=== PATIENT | female | born 1965 | race Caucasian/White ===

== ENCOUNTER 2019-04-25 06:32 | Emergency (ER) | payer OTHER, SELFPAY ==
[2019-04-25 06:39] VITALS: BP 148/91; PULSE 86; RESP 12; TEMP 36.8; O2SAT 97; BMI 28.8
[2019-04-25] MEDS: PROCHLORPERAZINE 10 MG/2 ML VIAL IV (07:10)
[2019-04-25] MEDS: diphenhydrAMINE 50 MG/ML VIAL 25 MG IV (07:11)
[2019-04-25] MEDS: KETOROLAC 60 MG/2 ML VIAL 30 MG IV (07:11)
[2019-04-25] MEDS: SODIUM CHLORIDE 0.9% 1,000 ML 1000 ML IV (07:11)
--- NOTE | 2019-04-25 07:41 | ED.HA ---
HPI - Headache General Chief Complaint: Headache Stated Complaint: migrane since tuesday Time Seen by Provider: 04/25/19 07:01 Source: patient and family Mode of arrival: Ambulatory Limitations: no limitations History of Present Illness HPI Narrative: Patient comes emergency department complaining of a headache for the last 6 days. Patient has a history of migraine headaches and is seen by Dr. Helm of neurology at [facility]. She states that she also is seen at a chronic pain clinic because she has daily migraines. However, she is here because her normal therapies at home are not working and has been some days. Patient states that the headache is the same in character as her usual headaches otherwise. She states she has been somewhat nauseated but has not vomited. The headache is on the left side mainly, but has spread over the rest of her head. She states her neck feels tight but is not painful. She denies fevers or chills. No recent illness. No head injury. Patient denies any focal neurologic deficits, other than ?spots? in her vision, which she states is normal for her migraines. Patient denies any other complaints at this time. Related Data Home Medications Medication Instructions Recorded Confirmed methimazole [Tapazole] 10 mg PO Q DAY #0 07/04/11 [VICOPROFEN] #0 04/17/16 oxycodone [OxyContin] 10 mg OR HS #0 04/17/16 Previous Rx's Medication Instructions Recorded hydromorphone [Dilaudid] 4 mg PO Q6HP PRN #5 tab 04/17/16 promethazine 25 mg PO Q6HP PRN #10 tab 04/17/16 Allergies Allergy/AdvReac Type Severity Reaction Status Date / Time No Known Allergies Allergy Uncoded 08/17/17 12:12 Review of Systems Review of Systems ROS Unobtainable: All systems reviewed & are unremarkable except as noted in HPI and below Constitutional Constitutional: Denies chills, Denies fatigue, Denies fever(s), Denies frequent falls, Reports headache(s), Denies lethargy and Denies weakness Eyes Eyes: Denies change in vision, Denies eye discharge, Denies irritation and Denies loss of vision ENT Ears, Nose, Mouth, and Throat: Denies change in voice, Denies dizziness, Reports headache(s), Denies neck pain, Denies sore throat and Denies throat swelling Cardiovascular Cardiovascular: Denies chest pain, Denies irregular heart rhythm, Denies lightheadedness, Denies palpitations, Denies dyspnea, Denies dyspnea on exertion and Denies orthopnea Respiratory Respiratory: Denies cough, Denies dyspnea, Denies dyspnea on exertion and Denies wheezing Gastrointestinal Gastrointestinal: Denies abdominal pain, Denies change in bowel habits, Denies diarrhea, Denies nausea and Denies vomiting Genitourinary Genitourinary: Denies hematuria, Denies flank pain, Denies urinary incontinence and Denies urinary urgency Musculoskeletal Musculoskeletal: Denies back pain, Denies muscle weakness, Denies neck pain, Denies numbness and Denies tingling Integumentary/Breasts Skin/Breast: Denies pruritus, Denies erythema, Denies rash and Denies wounds Neurologic Neurologic: Denies behavioral changes, Denies confusion, Denies dizziness, Denies frequent falls, Reports headache(s), Denies loss of vision, Denies numbness, Denies tingling and Denies weakness Psychiatric Psychiatric: Denies anxiety, Denies behavioral changes, Denies confusion, Denies depression, Denies homicidal ideation and Denies suicidal ideation Endocrine Endocrine: Denies fatigue, Denies flushing and Denies palpitations Hematologic/Lymphatic Hematologic/Lymphatic: Denies easy bruising Allergic/Immunologic Allergic/Immunologic: Denies urticaria, Denies throat swelling and Denies wheezing Patient History Medical History Migraine (Acute) Social History Smoking Status: Never smoker Smoking Status: Never smoker alcohol intake frequency: a few times a week Substance Use Type: does not use Exam Initial Vital Signs Initial Vital Signs: Vital Signs Temperature 98.2 F 04/25/19 06:39 Pulse Rate 86 04/25/19 06:39 Respiratory Rate 12 04/25/19 06:39 Blood Pressure 148/91 H 04/25/19 06:39 Pulse Oximetry 97 04/25/19 06:39 Const General: cooperative and well developed Nutritional Appearance: well nourished Orientation: alert, awake, oriented x3 and not confused HENMT Head: normocephalic and atraumatic Ears: external ears normal Nose: external nose normal and No nasal discharge Face and sinus: face symmetric and No dry mucous membranes Mouth: oral mucosae normal and moist mucous membranes Teeth and gingiva: dentition normal Throat: uvula midline Eyes General: appearance normal, both eyes and all related structures Eyelids: eyelids normal Conjunctivae: conjunctivae normal Sclera: sclerae normal Pupils: PERRL EOM: EOM intact bilaterally Neck Neck: normal visual inspection, trachea midline, No lymphadenopathy, No midline deformity and No JVD Lymphatic: No lymphedema Chest Chest: normal inspection of the chest Resp Effort & Inspection: normal respiratory effort, able to speak in complete sentences, no respiratory distress and no use of accessory muscles Auscultation: clear to auscultation bilaterally, no rales, no rhonchi and no wheezes Cardio Rate: regular rate Rhythm: regular rhythm Heart Sounds: no click, no gallops, no murmurs and no rubs Pulses: normal peripheral pulses GI Inspection: non-distended Palpation: soft, no hepatosplenomegaly, No guarding, No pulsatile mass and No tender Auscultation: normal bowel sounds Back/Spine/Pelvis Back: No CVA tenderness Cervical Spine: cervical ROM normal and No pain with cervical ROM Thoracic/Lumbar Spine: thoracic and lumbar spine normal to inspection Skin General: no rashes or lesions noted, No jaundice and No petechiae Neuro General: alert, oriented x3, gait normal and no focal motor deficits Speech: speech normal Extrem General: full ROM, no clubbing, cyanosis or edema, no pedal edema and no calf tenderness Psych Appearance: well kempt Mental Status: mental status grossly normal Attitude: cooperative Thought Content: normal and suicidality Judgment: judgment good Course Course Course Narrative: When I evaluated the patient at the beginning of my shift in the emergency department, she had been here for 30 minutes and had received part of a L bolus 0.9 normal saline, as well as Compazine, Benadryl, and Toradol. She stated that her nausea was a little bit better, but her headache persisted. She stated that she has had migraines for a long time and that she is not a drug seeker and does not want to be viewed as such. 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 However, as she states is that what generally works for her is a small dose of Dilaudid and some Zofran. She is already on narcotics at home in the form of Vicoprofen and oxycodone. She states her last ED visit was about 4 5 months ago, but that normally, she calls her pain doctor and gets a prescription for several tablets of hydromorphone, and is able to overcome the headache at home. Patient was given the rest of the IV fluids, as well as 1 mg of Dilaudid and 4 mg dose Zofran. The patient was found to be feeling better after this, was deemed stable for discharge home. We've discussed home management of symptoms, the need for follow-up, and the usual indications for return. Orders Ordered: Discontinued Medications Diphenhydramine HCl (Benadryl) 25 mg IV NOW ONE Stop: 04/25/19 07:02 Last Admin: 04/25/19 07:11 Dose: 25 mg Documented by: ARACELI Hydromorphone HCl (Dilaudid) 1 mg IV NOW ONE Stop: 04/25/19 07:41 Last Admin: 04/25/19 07:50 Dose: 1 mg Documented by: DEYSI Sodium Chloride (Normal Saline 0.9%) 1,000 mls @ 1,000 mls/hr IV BOLUS ONE Stop: 04/25/19 08:00 Last Infusion: 04/25/19 08:01 Dose: 0 mls/hr Documented by: Admin: 04/25/19 07:11 Dose: 1,000 mls/hr Documented by: ARACELI Ketorolac Tromethamine (Toradol) 30 mg IV NOW ONE Stop: 04/25/19 07:02 Last Admin: 04/25/19 07:11 Dose: 30 mg Documented by: ARACELI Ondansetron HCl (Zofran) 4 mg IV NOW ONE Stop: 04/25/19 07:41 Last Admin: 04/25/19 07:50 Dose: 4 mg Documented by: DEYSI Prochlorperazine (Compazine) 10 mg IV NOW ONE Stop: 04/25/19 07:02 Last Admin: 04/25/19 07:10 Dose: 10 mg Documented by: ARACELI Vital Signs Vital signs: Vital Signs - 8 hr 04/25/19 06:39 04/25/19 07:55 04/25/19 08:00 Temperature 98.2 F Pulse Rate 86 76 63 Respiratory Rate 12 15 16 Blood Pressure 148/91 H Blood Pressure [Left Arm] 154/89 H 143/89 H Pulse Oximetry 97 98 95 MDM - Headache Medical Records Attestation: I reviewed the patient's medical records. Discharge Plan Departure Patient Disposition: Home Clinical Impression: Migraine Qualifiers: Migraine type: without aura Status migrainosus presence: without status migrainosus Intractability: not intractable Qualified Code(s): G43.009 - Migraine without aura, not intractable, without status migrainosus Instructions: DI for Migraine Prescriptions: No Action methimazole [Tapazole] 10 MG tablet 10 mg PO Q DAY Qty: 0 RF: 0 oxycodone [OxyContin] 40 MG tablet,oral only,ext.rel.12 hr 10 mg OR HS Qty: 0 RF: 0 [VICOPROFEN] Qty: 0 RF: 0 promethazine 25 MG tablet 25 mg PO Q6HP PRNQty: 10 RF: 0 hydromorphone [Dilaudid] 4 MG tablet 4 mg PO Q6HP PRNQty: 5 RF: 0 Referrals: Pura Tse PA-C [Primary Care Provider] - Stand Alone Forms: Work Release Note
[2019-04-25] MEDS: HYDROMORPHONE 1 MG INJ IV (07:50)
[2019-04-25] MEDS: ONDANSETRON 4 MG/2 ML INJ IV (07:50)
[2019-04-25 07:55] VITALS: BP 154/89; PULSE 76; RESP 15; O2SAT 98
[2019-04-25 08:00] VITALS: BP 143/89; PULSE 63; RESP 16; O2SAT 95
== END 2019-04-25 08:44 | disposition home or self-care (01) ==
PROVIDERS: Emergency Provider Emergency Medicine; PCP Physician Assistant Medical
DX: G43.009 Migraine without aura, not intractable, without status migrainosus (principal)
CPT/HCPCS: 36415; 96361; 96374; 96375; 99284; J0780; J1170; J1200; J1885; J2405

== ENCOUNTER 2019-07-20 05:09 | Emergency (ER) | payer OTHER, SELFPAY ==
[2019-07-20 05:13] VITALS: BP 190/95; RESP 20; O2SAT 98
--- NOTE | 2019-07-20 05:13 | ED.GENADULT ---
HPI - General Adult General Chief complaint: Dizziness Stated complaint: rolled over in bed and got dizzy/eye problem Time Seen by Provider: 07/20/19 05:13 History of Present Illness HPI narrative: 53-year-old woman with a history of chronic migraine causing chronic pain, prior episode of global transient amnesia presents with acute onset vertigo. Was asleep rolled over in bed had severe vertigo that has calmed by the time she gets to the emergency room but is clearly very positional. She describes her most recent migraine as 1 week ago, she has had no new medications, no fevers, chills or viral type syndromes. No head trauma, no visual changes mild nausea no vomiting no diarrhea no abdominal pain, dyspnea or chest pain. Related Data Home Medications Medication Instructions Recorded Confirmed methimazole [Tapazole] 10 mg PO Q DAY #0 07/04/11 [VICOPROFEN] #0 04/17/16 oxycodone [OxyContin] 10 mg OR HS #0 04/17/16 Previous Rx's Medication Instructions Recorded hydromorphone [Dilaudid] 4 mg PO Q6HP PRN #5 tab 04/17/16 promethazine 25 mg PO Q6HP PRN #10 tab 04/17/16 ondansetron 4 mg PO Q8H PRN #30 tab 07/20/19 Allergies Allergy/AdvReac Type Severity Reaction Status Date / Time No Known Allergies Allergy Uncoded 08/17/17 12:12 Review of Systems Review of Systems Narrative: All systems reviewed and are unremarkable except as noted in HPI and below Patient History Medical History (Updated 07/20/19 @ 05:32 by Anai Bojorquez MD) Migraine (Acute) Transient amnesia (Acute) Social History Smoking Status: Never smoker Smoking Status: Never smoker alcohol intake frequency: a few times a week Substance Use Type: does not use Exam Narrative Exam Narrative: General: Healthy appearing, in no acute distress. Able to give a complete and coherent history. Well-nourished well-developed HEENT: Moist mucous membranes, normal sclera with reactive pupils, with positional changes there is very mild rotatory nystagmus when she is going from laying supine to sitting up. She has mild rotatory nystagmus with positioning her head rapidly to the left side it extinguishes quickly. Very minimal nystagmus with right-sided rapid head positioning. Neck: No JVD, supple Respiratory: Lungs are clear to auscultation, no wheezing no rales no rhonchi. Full and symmetrical air movement Cardiac: Regular rate and rhythm no murmurs no bruits Abdomen: Soft nontender good bowel tones, no flank pain Skin: Warm and dry, no rashes Neurologic: Grossly neurologically intact with no obvious asymmetries or abnormalities Extremities: No trauma, well perfused Psych: Cooperative, appropriate insight and affect Initial Vital Signs Initial Vital Signs: Vital Signs Respiratory Rate 20 07/20/19 05:13 Blood Pressure 190/95 H 07/20/19 05:13 Pulse Oximetry 98 07/20/19 05:13 Course Orders Ordered: Discontinued Medications Meclizine HCl (Antivert) 25 mg PO NOW ONE Stop: 07/20/19 05:25 Last Admin: 07/20/19 05:47 Dose: 25 mg Documented by: [email or web address] Ondansetron HCl (Zofran Odt) 4 mg SL NOW ONE Stop: 07/20/19 05:25 Last Admin: 07/20/19 05:39 Dose: 4 mg Documented by: [email or web address] Vital Signs Vital signs: Vital Signs - 8 hr 07/20/19 05:13 Respiratory Rate 20 Blood Pressure 190/95 H Pulse Oximetry 98 Medical Decision Making Medical Records Medical records reviewed: Yes I reviewed the patient's medical records. MDM Narrative Medical decision making narrative: Exam and presentation are most consistent with acute onset of benign positional vertigo. She had an MRI MRA of her brain a month ago at [facility] as part of migraine workup. I was reportedly normal meaning that the chances of a developing a tumor or neoplastic syndrome within the last month is highly unlikely. Given her other lack of neurologic finding stroke is unlikely. No evidence of infection or meningitis. Will see if meclizine and Zofran or effective in controlling her nausea. Anticipatory guidance will be given and she is safe for home discharge Discharge Plan Departure Patient Disposition: Home Clinical Impression: Benign paroxysmal positional vertigo Qualifiers: Laterality: left Qualified Code(s): H81.12 - Benign paroxysmal vertigo, left ear Instructions: DI for Benign Paroxysmal Positional Vertigo Activity Restrictions/Additional Instructions: Thank you for coming in today Based on your history and your exam as well as the fact that you had a fairly recent MRI of your brain, the most likely diagnosis to explain her symptoms today is benign positional vertigo. I am going to suggest that you consider using meclizine/Antivert, this is actually cheaper [id number] than it is by prescription. It is 25 mg as needed every 6 hours for vertigo or nausea. If this is effective it is safe to use for extended periods of time. Sometimes Zofran can be equally effective. In the emergency room you are given both and if that seem to work you can combined the 2 medications as I do work by different mechanisms. Please follow-up with your primary care physician for continued to have symptoms, sometimes there are some maneuvers that can be done with physical therapy that can try to reset your inner ear Prescriptions: New ondansetron 4 mg tablet,disintegrating 4 mg PO Q8H PRN (Reason: nausea and vomiting) Qty: 30 RF: 0 No Action methimazole [Tapazole] 10 MG tablet 10 mg PO Q DAY Qty: 0 RF: 0 oxycodone [OxyContin] 40 MG tablet,oral only,ext.rel.12 hr 10 mg OR HS Qty: 0 RF: 0 [VICOPROFEN] Qty: 0 RF: 0 promethazine 25 MG tablet 25 mg PO Q6HP PRNQty: 10 RF: 0 hydromorphone [Dilaudid] 4 MG tablet 4 mg PO Q6HP PRNQty: 5 RF: 0 Referrals: Pura Tse PA-C [Primary Care Provider] -
[2019-07-20 05:24] VITALS: BMI 26.5
[2019-07-20] MEDS: ONDANSETRON 4 MG ODT SL (05:39)
[2019-07-20] MEDS: MECLIZINE HCL 12.5 MG TABLET 25 MG PO (05:47)
[2019-07-20 05:50] VITALS: BP 162/70; PULSE 77; RESP 16; O2SAT 100
== END 2019-07-20 05:55 | disposition home or self-care (01) ==
PROVIDERS: Emergency Provider Emergency Medicine; PCP Physician Assistant Medical
DX: H81.12 Benign paroxysmal vertigo, left ear (principal); G45.4 Transient global amnesia; G43.909 Migraine, unspecified, not intractable, without status migrainosus
CPT/HCPCS: 99283

== ENCOUNTER 2020-07-22 14:39 | Emergency (ER) | payer OTHER, SELFPAY ==
[2020-07-22] VITALS (17 sets, daily range): BP systolic 116–157; BP diastolic 57–89; PULSE 73–104; RESP 14–40; TEMP 36.9; O2SAT 92–99
--- NOTE | 2020-07-22 14:48 | DI.RAD.S_ITS ---
PROCEDURE: XR CHEST 1V INDICATIONS: chest pain TECHNIQUE: One view of the chest was acquired. COMPARISON: [facility], CR, XR SHOULDER 2+ VIEWS LEFT, 11/07/2017, 14:58. Outside Film, CT, CT ABDOMEN PELVIS WITH CONTRAST, 11/15/2015, 7:07. FINDINGS: Surgical changes and devices: None. Lungs and pleura: Lungs appear clear. No pleural effusions or pneumothorax. Mediastinum: Mediastinal contours appear normal. Heart size is normal. Bones and chest wall: No suspicious bony lesions. Overlying soft tissues appear unremarkable. IMPRESSION: No acute cardiopulmonary abnormality. Dictated by: Drew Gallagher M.D. on 07/22/2020 at 14:26 Approved by: Drew Gallagher M.D. on 07/22/2020 at 14:28
[2020-07-22 15:14] LABS: Add Manual Diff / Slide Review NO; Basophils Absolute Auto 0 /uL (0-100); Basophils Percent Auto 0.9 % (0-2); Eosinophils Absolute Auto 100 /uL (0-450); Eosinophils Percent Auto 2.7 % (2-4); Hematocrit 37.3 % (36-46); Hemoglobin 12.4 g/dL (12.0-16.0); Lymphocytes Absolute Auto 1000 /uL (1100-4500); Lymphocytes Percent Auto 24.5 % (25-40); Mean Corpuscular HGB Conc 33.2 % (30-36); Mean Corpuscular Hemoglobin 28.9 PG (26-34); Mean Corpuscular Volume 87.2 fL (80-100); Monocytes Absolute Auto 400 /uL (0-900); Monocytes Percent Auto 8.7 % (3-14); Neutrophils Absolute Auto 2700 /uL (1500-7000); Neutrophils Percent Auto 63.2 % (50-75); Platelet Count 323 X10^3/uL (150-400); Red Blood Cell Count 4.28 X10^6/uL (4.0-5.2); Red Cell Distribution Width 14.4 % (11.6-14.8); White Blood Cell Count 4.2 X10^3/uL (4.5-11.0)
[2020-07-22 15:17] LABS: INR 0.9 (0.9-1.3); Prothrombin Time 10.2 SECONDS (10.1-12.7)
[2020-07-22 15:20] LABS: PTT Partial Thromboplastin Tim 28 SECONDS (26.4-36.2)
[2020-07-22 15:22] LABS: Alanine Aminotransferase 47 IU/L (<35); Albumin 4.5 g/dL (3.5-5.0); Albumin Globulin Ratio 1.4 (1.0-2.8); Alkaline Phosphatase 112 U/L (38-126); Aspartate Aminotransferase 36 IU/L (14-36); BUN Creatinine Ratio 20.5 (6-22); Bilirubin Total 0.4 mg/dL (0.2-1.3); Blood Urea Nitrogen 16 mg/dL (7-17); Calcium 9.3 mg/dL (8.4-10.2); Carbon Dioxide 28 mmol/L (22-32); Chloride 102 mmol/L (98-107); Creatine Kinase 37 U/L (30-135); Estimated Glomerular Filt Rate > 60.0 mL/min (>60); Globulin 3.2 g/dL (1.7-4.1); Glucose 110 mg/dL (70-100); HEMOLYSIS < 15 (0-50); Lipase 89 U/L (23-300); Potassium 4.4 mmol/L (3.4-5.1); Sodium 134 mmol/L (137-145); Total Protein 7.7 g/dL (6.3-8.2)
[2020-07-22 15:29] LABS: COVID19 -Nasal RAPID Negative (Negative)
[2020-07-22 15:31] LABS: D Dimer < 200 ng/mL (<230)
[2020-07-22 15:33] LABS: Troponin I < 0.012 ng/mL (0.01-0.034)
[2020-07-22 15:53] LABS: NT-proBNP (BNP-Adult 18+) 210 pg/mL (<125)
--- NOTE | 2020-07-22 18:18 | ED.CHESTPAIN ---
HPI - Chest Pain General Chief Complaint: Chest Pain Stated Complaint: Chest pain 3-4 days Time Seen by Provider: 07/22/20 18:02 Source: patient and EMS Mode of arrival: EMS Limitations: no limitations History of Present Illness HPI narrative: 54-year-old female former smoker with history of hypertension presents by EMS for evaluation of increasing episodes and intensity of chest pain and pressure. She states that over the past 2 weeks or so she has had increasing fatigue and shortness of breath with exertion. She has had episodes of chest pressure with exertion that seemed to resolve on their own. Over the course of the day she developed more intense left-sided chest pressure with radiation to left shoulder, right shoulder and jaw. She called EMS and was transported here. Her symptoms completely resolved with 1 nitro EN route. She denies any dizziness, lightheadedness or pain on arrival. She has had no nausea or vomiting. He denies any cardiac history. She denies exposure to COVID. She has had no recent travel, history of clot or recent injury. MD complaint: chest pain Onset (ago): week(s) Duration: intermittent and progressively worsening Onset: during rest and during exertion Pain location: substernal and left chest Severity: moderate Severity scale (1-10): 4 Quality: tightness and aching Pain radiation: RUE, LUE, neck and jaw/teeth Relieving factors: nitroglycerin Exacerbating factors: exertion Associated symptoms: dyspnea Treatments prior to arrival chest pain: nitroglycerin Related Data On Oral Contraceptives: No Home Medications Medication Instructions Recorded Confirmed methimazole [Tapazole] 10 mg PO Q DAY #0 07/04/11 [VICOPROFEN] #0 04/17/16 oxycodone [OxyContin] 10 mg OR HS #0 04/17/16 Previous Rx's Medication Instructions Recorded hydromorphone [Dilaudid] 4 mg PO Q6HP PRN #5 tab 04/17/16 promethazine 25 mg PO Q6HP PRN #10 tab 04/17/16 ondansetron 4 mg PO Q8H PRN #30 tab 07/20/19 Allergies Allergy/AdvReac Type Severity Reaction Status Date / Time No Known Allergies Allergy Uncoded 08/17/17 12:12 Review of Systems Constitutional Constitutional: Denies chills, Denies fatigue, Denies fever(s), Denies frequent falls, Denies lethargy and Denies weakness Eyes Eyes: Denies change in vision, Denies eye discharge, Denies irritation and Denies loss of vision ENT Ears, Nose, Mouth, and Throat: Denies change in voice, Denies dizziness, Denies neck pain, Denies sore throat and Denies throat swelling Cardiovascular Cardiovascular: Reports chest pain, Reports chest pain at rest, Reports chest pain with activity, Denies irregular heart rhythm, Denies lightheadedness, Denies palpitations, Denies dyspnea, Denies dyspnea on exertion and Denies orthopnea Respiratory Respiratory: Denies cough, Denies dyspnea, Denies dyspnea on exertion and Denies wheezing Gastrointestinal Gastrointestinal: Denies abdominal pain, Denies change in bowel habits, Denies diarrhea, Denies nausea and Denies vomiting Musculoskeletal Musculoskeletal: Denies neck pain and Denies numbness Integumentary/Breasts Skin/Breast: Denies pruritus, Denies erythema, Denies rash and Denies wounds Neurologic Neurologic: Denies behavioral changes, Denies confusion, Denies dizziness, Denies frequent falls, Denies loss of vision, Denies numbness and Denies weakness Psychiatric Psychiatric: Denies anxiety, Denies behavioral changes, Denies confusion, Denies depression, Denies homicidal ideation and Denies suicidal ideation Endocrine Endocrine: Denies fatigue, Denies flushing and Denies palpitations Hematologic/Lymphatic Hematologic/Lymphatic: Denies easy bruising Allergic/Immunologic Allergic/Immunologic: Denies urticaria, Denies throat swelling and Denies wheezing Patient History Medical History Migraine Transient amnesia Social History Smoking Status: Never smoker Smoking Status: Never smoker alcohol intake frequency: a few times a week Substance Use Type: does not use Exam Narrative Exam Narrative: GENERAL: [54] year old patient appears stated age. Well-nourished, well-developed patient, in mild distress. HEAD: Atraumatic. Normocephalic. EYES: Pupils equal round and reactive. Extraocular motions intact. No scleral icterus. No injection or drainage. ENT: Nose without bleeding, purulent drainage. Throat without erythema, tonsillar hypertrophy or exudate. Airway patent. NECK: Trachea midline. Non tender CARDIOVASCULAR: Regular rate and rhythm without murmurs, gallops, or rubs. RESPIRATORY: Clear to auscultation. Breath sounds equal bilaterally. No wheezes, rales, or rhonchi. GASTROINTESTINAL: Abdomen soft, non-tender, nondistended. EXTREMITIES: No edema or joint tenderness. BACK: Nontender without deformity or crepitance. No flank tenderness. NEURO: AOx3. SKIN: No rash or erythema of visible areas Initial Vital Signs Initial Vital Signs: Vital Signs Pulse Rate 104 H 07/22/20 15:01 Respiratory Rate 40 H 07/22/20 15:01 Course Orders Ordered: ED Orders 07/22/20 14:48 XR chest 1V Stat EKG-12 Lead Stat 07/22/20 15:05 Complete Blood Count AUTO DIFF Stat Comprehensive Metabolic Panel Stat D Dimer Stat Lipase Stat NT-proBNP (BNP-Adult 18+) Stat Partial Thromboplastin Time Stat Prothrombin Time INR Stat Troponin & CK Cardiac Panel Stat 07/22/20 15:06 COVID19 -Nasal swab/Pre-Proc Stat 07/22/20 18:20 EKG-12 Lead Stat 07/22/20 19:07 Troponin I Stat 07/22/20 21:07 EKG-12 Lead Stat Heparin Sodium/Dextrose (Heparin Drip) 25,000 unit in 500 mls @ 20 mls/hr IV CONT EMMANUEL; Protocol Last Admin: 07/22/20 19:42 Dose: 1,000 units/hr, 20 mls/hr Documented by: GERMÁN Discontinued Medications Hydrocodone Bitart/Acetaminophen (Hydrocodone/Acet 5/325 Tablet) 2 tab PO NOW ONE Stop: 07/22/20 19:56 Last Admin: 07/22/20 20:01 Dose: 2 tab Documented by: GERMÁN Aspirin (Aspirin 81 Mg Chew Tab) 324 mg PO NOW ONE Stop: 07/22/20 18:21 Last Admin: 07/22/20 18:53 Dose: 324 mg Documented by: RADHA Heparin Sodium (Porcine) (Heparin 5,000 Unit/Ml Vial) 4,000 unit IV NOW ONE Stop: 07/22/20 19:34 Last Admin: 07/22/20 19:42 Dose: 4,000 unit Documented by: GERMÁN Nitroglycerin (Nitroglycerin 0.4 Mg Sl Tab) 0.4 mg SL [id number] PRN PRN Reason: Chest Pain Last Admin: 07/22/20 19:12 Dose: 0.4 mg Documented by: Admin: 07/22/20 19:11 Dose: 0.4 mg Documented by: Admin: 07/22/20 19:00 Dose: 0.4 mg Documented by: RADHA Nitroglycerin (Nitroglycerin Oint 1 Inch/Gm Oint...G.) 0.5 inch TOP NOW ONE Stop: 07/22/20 21:08 Reevaluation(s) Reevaluation #1: Patient starting to develop chest pressure again, given nitro with complete relief Time: 19:40 Reevaluation #2: Patient was ambulated to the bathroom which brought her pressure back onto a 3/10. She is given nitro paste and a repeat EKG Time: 21:13 Consultations Consultation #1: Discussed case with Cardiology (Maye), he agrees that this is likely an evolving process and will require transfer for higher level care unlikely heart catheterization. Patient already takes metoprolol and has been given aspirin, nitro and heparin bolus and drip Vital Signs Vital signs: Vital Signs - 8 hr 07/22/20 15:01 07/22/20 15:30 07/22/20 17:00 Temperature 98.4 F Pulse Rate 104 H 75 76 Respiratory Rate 40 H 21 16 Blood Pressure 140/86 141/89 H Pulse Oximetry 97 98 07/22/20 18:00 07/22/20 19:00 07/22/20 19:11 Temperature Pulse Rate 76 83 97 H Respiratory Rate 16 Blood Pressure 130/78 155/89 H 135/88 Pulse Oximetry 99 07/22/20 19:12 Temperature Pulse Rate 90 Respiratory Rate Blood Pressure 118/57 L Pulse Oximetry MDM - Chest Pain Lab Data Result diagrams: 07/22/20 15:05 07/22/20 15:05 Labs: Lab Results 07/22/20 07/22/20 07/22/20 Range/Units 15:05 15:05 15:05 WBC 4.2 L (4.5-11.0) X10^3/uL RBC 4.28 (4.0-5.2) X10^6/uL Hgb 12.4 (12.0-16.0) g/dL Hct 37.3 (36-46) % MCV 87.2 (80-100) fL MCH 28.9 (26-34) PG MCHC 33.2 (30-36) % RDW 14.4 (11.6-14.8) % Plt Count 323 (150-400) X10^3/uL Neut % (Auto) 63.2 (50-75) % Lymph % (Auto) 24.5 L (25-40) % [place] % (Auto) 8.7 (3-14) % Eos % (Auto) 2.7 (2-4) % Baso % (Auto) 0.9 (0-2) % Neut # (Auto) 2700 (7203-0121) /uL Lymph # (Auto) 1000 L (4319-2689) /uL [place] # (Auto) 400 (0-900) /uL Eos # (Auto) 100 (0-450) /uL Baso # (Auto) 0 (0-100) /uL PT 10.2 (10.1-12.7) SECONDS INR 0.9 (0.9-1.3) APTT 28 (26.4-36.2) SECONDS D-Dimer (<230) ng/mL Sodium 134 L (137-145) mmol/L Potassium 4.4 (3.4-5.1) mmol/L Chloride 102 (98-107) mmol/L Carbon Dioxide 28 (22-32) mmol/L BUN 16 (7-17) mg/dL Creatinine 0.78 (0.52-1.04) mg/dL Estimated GFR > 60.0 (>60) mL/min BUN/Creatinine Ratio 20.5 (6-22) Glucose 110 H (70-100) mg/dL Calcium 9.3 (8.4-10.2) mg/dL Total Bilirubin 0.4 (0.2-1.3) mg/dL AST 36 (14-36) IU/L ALT 47 H (<35) IU/L Alkaline Phosphatase 112 (38-126) U/L Total Creatine Kinase 37 (30-135) U/L CK-MB (CK-2) TNP CK-MB (CK-2) Rel Index TNP Troponin I < 0.012 (0.01-0.034) ng/mL NT-Pro-B Natriuret Pep (<125) pg/mL Total Protein 7.7 (6.3-8.2) g/dL Albumin 4.5 (3.5-5.0) g/dL Globulin 3.2 (1.7-4.1) g/dL Albumin/Globulin Ratio 1.4 (1.0-2.8) Lipase 89 (23-300) U/L SARS-CoV-2 (PCR) (Negative) 07/22/20 07/22/20 07/22/20 Range/Units 15:05 15:05 15:06 WBC (4.5-11.0) X10^3/uL RBC (4.0-5.2) X10^6/uL Hgb (12.0-16.0) g/dL Hct (36-46) % MCV (80-100) fL MCH (26-34) PG MCHC (30-36) % RDW (11.6-14.8) % Plt Count (150-400) X10^3/uL Neut % (Auto) (50-75) % Lymph % (Auto) (25-40) % [place] % (Auto) (3-14) % Eos % (Auto) (2-4) % Baso % (Auto) (0-2) % Neut # (Auto) (4694-7986) /uL Lymph # (Auto) (2020-4777) /uL [place] # (Auto) (0-900) /uL Eos # (Auto) (0-450) /uL Baso # (Auto) (0-100) /uL PT (10.1-12.7) SECONDS INR (0.9-1.3) APTT (26.4-36.2) SECONDS D-Dimer < 200 (<230) ng/mL Sodium (137-145) mmol/L Potassium (3.4-5.1) mmol/L Chloride (98-107) mmol/L Carbon Dioxide (22-32) mmol/L BUN (7-17) mg/dL Creatinine (0.52-1.04) mg/dL Estimated GFR (>60) mL/min BUN/Creatinine Ratio (6-22) Glucose (70-100) mg/dL Calcium (8.4-10.2) mg/dL Total Bilirubin (0.2-1.3) mg/dL AST (14-36) IU/L ALT (<35) IU/L Alkaline Phosphatase (38-126) U/L Total Creatine Kinase (30-135) U/L CK-MB (CK-2) CK-MB (CK-2) Rel Index Troponin I (0.01-0.034) ng/mL NT-Pro-B Natriuret Pep 210 H (<125) pg/mL Total Protein (6.3-8.2) g/dL Albumin (3.5-5.0) g/dL Globulin (1.7-4.1) g/dL Albumin/Globulin Ratio (1.0-2.8) Lipase (23-300) U/L SARS-CoV-2 (PCR) Negative (Negative) 07/22/20 Range/Units 19:07 WBC (4.5-11.0) X10^3/uL RBC (4.0-5.2) X10^6/uL Hgb (12.0-16.0) g/dL Hct (36-46) % MCV (80-100) fL MCH (26-34) PG MCHC (30-36) % RDW (11.6-14.8) % Plt Count (150-400) X10^3/uL Neut % (Auto) (50-75) % Lymph % (Auto) (25-40) % [place] % (Auto) (3-14) % Eos % (Auto) (2-4) % Baso % (Auto) (0-2) % Neut # (Auto) (5021-7243) /uL Lymph # (Auto) (6629-3578) /uL [place] # (Auto) (0-900) /uL Eos # (Auto) (0-450) /uL Baso # (Auto) (0-100) /uL PT (10.1-12.7) SECONDS INR (0.9-1.3) APTT (26.4-36.2) SECONDS D-Dimer (<230) ng/mL Sodium (137-145) mmol/L Potassium (3.4-5.1) mmol/L Chloride (98-107) mmol/L Carbon Dioxide (22-32) mmol/L BUN (7-17) mg/dL Creatinine (0.52-1.04) mg/dL Estimated GFR (>60) mL/min BUN/Creatinine Ratio (6-22) Glucose (70-100) mg/dL Calcium (8.4-10.2) mg/dL Total Bilirubin (0.2-1.3) mg/dL AST (14-36) IU/L ALT (<35) IU/L Alkaline Phosphatase (38-126) U/L Total Creatine Kinase (30-135) U/L CK-MB (CK-2) CK-MB (CK-2) Rel Index Troponin I < 0.012 (0.01-0.034) ng/mL NT-Pro-B Natriuret Pep (<125) pg/mL Total Protein (6.3-8.2) g/dL Albumin (3.5-5.0) g/dL Globulin (1.7-4.1) g/dL Albumin/Globulin Ratio (1.0-2.8) Lipase (23-300) U/L SARS-CoV-2 (PCR) (Negative) Imaging Data Chest x-ray: Radiologist's Impression: Ginny Garcia 54 F [address] [id number] ReportSigned Patient: Ginny Garcia MMR#: [id number]: 1965Acct:[id number]/Sex: 54 / FDate of Service: 07/22/20Loc: EDAccession Number: [id number] Procedure: XR chest 1V Ordering Provider: Karen Coates D.O. PROCEDURE: XR CHEST 1V INDICATIONS: chest pain TECHNIQUE: One view of the chest was acquired. COMPARISON: [facility], CR, XR SHOULDER 2+ VIEWS LEFT, 11/07/2017, 14:58. Outside Film, CT, CT ABDOMEN PELVIS WITH CONTRAST, 11/15/2015, 7:07. FINDINGS: Surgical changes and devices: None. Lungs and pleura: Lungs appear clear. No pleural effusions or pneumothorax. Mediastinum: Mediastinal contours appear normal. Heart size is normal. Bones and chest wall: No suspicious bony lesions. Overlying soft tissues appear unremarkable. IMPRESSION: No acute cardiopulmonary abnormality. Dictated by: Drew Gallagher M.D. on 07/22/2020 at 14:26 Approved by: Drew Gallagher M.D. on 07/22/2020 at 14:28 ECG Data Attestation: I personally reviewed and interpreted this ECG as follows: Interpretation: EKG 1: NSR, rate 74. No ST elevations or depressions. The are T-wave inversions in 3 and V1 with flattening in V4 and V5. No ectopy. PA interval, 148. QRS 78. QTC 402 EKG 2: NSR. Rate 73. No ST elevations or depressions. Larger T wave inversions after walking in III, V1 Critical Care Time Critical Care Time Critical Care Time: Yes Total Critical Care Time: 30 Attestation: The high probability of a clinically significant, sudden or life threatening deterioration of the [CV] system(s) required my full and direct attention, intervention and personal management. The aggregate critical care time was [30] minutes. This time is in addition to time spent performing reported procedures but includes the following: [x] Data Review and interpretation [x] Patient assessment and monitoring of vital signs [x] Documentation [x] Medication orders and management Discharge Plan Departure Patient Disposition: [facility] Clinical Impression: Angina pectoris, unstable Prescriptions: No Action methimazole [Tapazole] 10 MG tablet 10 mg PO Q DAY Qty: 0 RF: 0 oxycodone [OxyContin] 40 MG tablet,oral only,ext.rel.12 hr 10 mg OR HS Qty: 0 RF: 0 [VICOPROFEN] Qty: 0 RF: 0 promethazine 25 MG tablet 25 mg PO Q6HP PRNQty: 10 RF: 0 hydromorphone [Dilaudid] 4 MG tablet 4 mg PO Q6HP PRNQty: 5 RF: 0 ondansetron 4 mg tablet,disintegrating 4 mg PO Q8H PRN (Reason: nausea and vomiting) Qty: 30 RF: 0 Referrals: Pura Tse PA-C [Primary Care Provider] -
[2020-07-22] MEDS: ASPIRIN 81 MG CHEW TAB 324 MG PO (18:53)
[2020-07-22] MEDS: NITROGLYCERIN 0.4 MG SL TAB SL ×3 (19:00→19:12)
[2020-07-22 19:40] LABS: Troponin I < 0.012 ng/mL (0.01-0.034)
[2020-07-22] MEDS: HEPARIN 5,000 UNIT/ML VIAL 4000 UNIT IV (19:42)
[2020-07-22] MEDS: HEPARIN DRIP 25,000 UNIT/500 ML IV.SOLN 20 UNIT IV (19:42)
[2020-07-22] MEDS: HYDROCODONE/ACET 5/325 TABLET 2 TAB PO (20:01)
[2020-07-22] MEDS: NITROGLYCERIN OINT 1 INCH/GM OINT...G. 0.5 INCH TOP (21:11)
== END 2020-07-22 21:35 | disposition short-term general hospital (02) ==
PROVIDERS: Emergency Medicine; Emergency Provider Emergency Medicine; PCP Physician Assistant Medical
DX: I20.0 Unstable angina (principal); R06.02 Shortness of breath; Z20.822 Contact with and (suspected) exposure to COVID-19
CPT/HCPCS: 36415; 71045; 80053; 82550; 83690; 83880; 84484; 85025; 85379; 85610; 85730; 87635; 93005; 93010; 96365; 96366; 96375; 99284; 99291; C9803; J1644

== ENCOUNTER 2020-09-25 02:44 | Observation (INO) | payer OTHER, SELFPAY ==
[2020-09-25] VITALS (14 sets, daily range): BP systolic 111–131; BP diastolic 63–100; PULSE 73–88; RESP 18–24; TEMP 36.3–36.9; O2SAT 96–98; BMI 28.3; BMI 31.4
--- NOTE | 2020-09-25 02:56 | ED.GENADULT ---
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 Symptoms started this evening when she did not quite feel well. She checked her blood pressure at home and had multiple readings that were quite low. With increasing dizziness and then shaking through her entire body that was so bad she was having difficulty even standing, 911 was called. They are initial blood pressure was within normal limits. She denies any fevers, no recent chest pain however she did have an emergency room visit with transfer to [facility] 2 weeks ago with negative cardiac workup for chest pain at that time. She notes that she recently started Cymbalta as well as hydroxyzine for anxiety after the recent loss of her mother. Related Data Home Medications Medication Instructions Recorded Confirmed methimazole [Tapazole] 10 mg PO Q DAY #0 07/04/11 [VICOPROFEN] #0 04/17/16 oxycodone [OxyContin] 10 mg OR HS #0 04/17/16 Previous Rx's Medication Instructions Recorded hydromorphone [Dilaudid] 4 mg PO Q6HP PRN #5 tab 04/17/16 promethazine 25 mg PO Q6HP PRN #10 tab 04/17/16 ondansetron 4 mg PO Q8H PRN #30 tab 07/20/19 Allergies Allergy/AdvReac Type Severity Reaction Status Date / Time No Known Allergies Allergy Uncoded 08/17/17 12:12 Review of Systems Review of Systems Narrative: Remainder of complete review of systems is otherwise unremarkable except for that included in the HPI. Patient History Medical History (Updated 09/25/20 @ 04:41 by Anai Bojorquez MD) Graves disease Migraine Transient amnesia Social History Smoking Status: Never smoker Smoking Status: Never smoker alcohol intake frequency: a few times a week Substance Use Type: does not use Exam Narrative Exam Narrative: General: Flushed and appears to not feel well but in no acute distress. Able to give a complete and coherent history. Well-nourished well-developed HEENT: Moist mucous membranes, normal sclera with reactive pupils, Neck: No JVD, supple Respiratory: Lungs are clear to auscultation, no wheezing no rales no rhonchi. Full and symmetrical air movement Cardiac: Regular rate and rhythm no murmurs no bruits Abdomen: Soft, nontender, good bowel tones, no flank pain Skin: Warm and dry, no rashes Neurologic: Grossly neurologically intact with no obvious asymmetries or abnormalities. Total body tremors with restless leg movement. She is not hyper-reflexic, Extremities: No trauma, well perfused Psych: Cooperative, appropriate insight and affect Initial Vital Signs Initial Vital Signs: Vital Signs Temperature 98.4 F 09/25/20 02:57 Pulse Rate 84 09/25/20 02:57 Respiratory Rate 24 09/25/20 02:57 Blood Pressure 131/87 09/25/20 02:57 Pulse Oximetry 98 09/25/20 02:57 Course Orders Ordered: ED Orders 09/25/20 02:50 Complete Blood Count AUTO DIFF Stat Comprehensive Metabolic Panel Stat Lactate (Lactic Acid) Stat Lipase Stat Magnesium Stat Troponin I Stat 09/25/20 02:57 XR chest 1V Stat EKG-12 Lead Stat 09/25/20 03:13 Blood Culture Stat 09/25/20 04:25 COVID19 - ADMIT ([employer]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) Stat Discontinued Medications Acetaminophen (Acetaminophen 325 Mg Tablet) 975 mg PO NOW ONE Stop: 09/25/20 02:57 Last Admin: 09/25/20 03:06 Dose: 975 mg Documented by: [email or web address] Diphenhydramine HCl (Diphenhydramine 50 Mg/Ml Vial) 25 mg IV NOW ONE Stop: 09/25/20 02:57 Last Admin: 09/25/20 03:06 Dose: 25 mg Documented by: [email or web address] Sodium Chloride (Normal Saline 0.9%) 1,000 mls @ 1,000 mls/hr IV BOLUS ONE Stop: 09/25/20 03:55 Last Admin: 09/25/20 03:05 Dose: 1,000 mls/hr Documented by: [email or web address] Ondansetron HCl (Ondansetron 4 Mg/2 Ml Inj) 4 mg IV NOW ONE Stop: 09/25/20 02:57 Last Admin: 09/25/20 03:06 Dose: 4 mg Documented by: LORNA Vital Signs Vital signs: Vital Signs - 8 hr 09/25/20 02:57 09/25/20 03:00 09/25/20 03:30 Temperature 98.4 F Pulse Rate 84 Respiratory Rate 24 Blood Pressure 131/87 124/84 120/100 H Pulse Oximetry 98 09/25/20 03:34 09/25/20 03:59 09/25/20 04:00 Temperature Pulse Rate 88 81 81 Respiratory Rate Blood Pressure 128/70 Pulse Oximetry 97 96 96 Medical Decision Making Medical Records Medical records reviewed: Yes I reviewed the patient's medical records. Lab Data Lab results reviewed: Yes I reviewed the patient's lab results. Result diagrams: 09/25/20 02:50 09/25/20 02:50 Labs: Lab Results 09/25/20 09/25/20 09/25/20 Range/Units 02:50 02:50 02:50 WBC 6.4 (4.5-11.0) X10^3/uL RBC 3.67 L (4.0-5.2) X10^6/uL Hgb 10.5 L (12.0-16.0) g/dL Hct 31.9 L (36-46) % MCV 86.9 (80-100) fL MCH 28.7 (26-34) PG MCHC 33.0 (30-36) % RDW 13.4 (11.6-14.8) % Plt Count 215 (150-400) X10^3/uL Neut % (Auto) 47.9 L (50-75) % Lymph % (Auto) 30.8 (25-40) % [place] % (Auto) 11.6 (3-14) % Eos % (Auto) 8.9 H (2-4) % Baso % (Auto) 0.8 (0-2) % Neut # (Auto) 3100 (7248-3346) /uL Lymph # (Auto) 2000 (4281-6984) /uL [place] # (Auto) 700 (0-900) /uL Eos # (Auto) 600 H (0-450) /uL Baso # (Auto) 100 (0-100) /uL Sodium 124 L (137-145) mmol/L Potassium 4.5 (3.4-5.1) mmol/L Chloride 91 L (98-107) mmol/L Carbon Dioxide 26 (22-32) mmol/L BUN 18 H (7-17) mg/dL Creatinine 0.77 (0.52-1.04) mg/dL Estimated GFR > 60.0 (>60) mL/min BUN/Creatinine Ratio 23.4 H (6-22) Glucose 98 (70-100) mg/dL Lactate 1.0 (0.7-2.1) mmol/L Calcium 8.4 (8.4-10.2) mg/dL Magnesium 1.8 (1.6-2.3) mg/dL Total Bilirubin 0.2 (0.2-1.3) mg/dL AST 39 H (14-36) IU/L ALT 42 H (<35) IU/L Alkaline Phosphatase 103 (38-126) U/L Troponin I < 0.012 (0.01-0.034) ng/mL Total Protein 6.7 (6.3-8.2) g/dL Albumin 4.1 (3.5-5.0) g/dL Globulin 2.6 (1.7-4.1) g/dL Albumin/Globulin Ratio 1.6 (1.0-2.8) Lipase 68 (23-300) U/L Urine Dip Bedside Urine Glucose Negative Bedside Urine Bilirubin - Negative Bedside Urine Ketone - Negative Urine Specific [place] 1.015 Bedside Urine Occult Blood - Negative Bedside Urine pH 6 Bedside Urine Protein - Negative Bedside Urine Urobilinogen - Negative Bedside Urine Nitrite - Negative Bedside Urine Leukocytes - Negative Esterase Point of care testing: Urine Dip Bedside Urine Glucose Negative Bedside Urine Bilirubin - Negative Bedside Urine Ketone - Negative Urine Specific [place] 1.015 Bedside Urine Occult Blood - Negative Bedside Urine pH 6 Bedside Urine Protein - Negative Bedside Urine Urobilinogen - Negative Bedside Urine Nitrite - Negative Bedside Urine Leukocytes - Negative Esterase MDM Narrative Medical decision making narrative: 54-year-old woman presents with reports of hypotension at home normal tension once checked by medics, feeling generally unwell and now with tremors/rigors and very restless legs acutely. This does not meet any criteria for neuroleptics malignant syndrome or acute serotonin syndrome. This does not appear to be psychogenic or anxiety related. She did recently start Cymbalta and review of side effects does show mild tremor. Will look for signs and symptoms of infection, electrolyte abnormalities and will also treat her with Benadryl to see if this may help with the tremor overall Labs returned significant for a sodium of 124 is the only dramatic abnormality. She has run low in the past but not quite this low. That may be part of the general ?not quite feeling right symptoms of which she complained. The tremor is still notable but somewhat improved after the Benadryl. On further questioning regarding the low sodium she is not on any medications that would do that but does note that she drinks ?a lot? of water. Care is reviewed with the hospitalist and patient will be admitted for observation with free water restriction, L of saline is given will recheck sodium is it increases re-evaluate. With only 2 weeks of Cymbalta certainly is possible at that is contributing and holding it until sodium is back into normal range and then restarting in evaluating Nee will be appropriate. Findings and concerns are reviewed with patient and she is safe for transfer to the floor. Discharge Plan Departure Patient Disposition: Admitted as Observation Clinical Impression: Tremor, Acute hyponatremia
--- NOTE | 2020-09-25 02:57 | DI.RAD.S_ITS ---
PROCEDURE: XR CHEST 1V INDICATIONS: tremors TECHNIQUE: One view of the chest was acquired. COMPARISON: [facility], CR, XR CHEST 1V, 07/22/2020, 15:02. FINDINGS: Surgical changes and devices: None. Lungs and pleura: Lungs are clear. No pleural effusions or pneumothorax. Mediastinum: Mediastinal contours appear normal. Heart size is normal. Bones and chest wall: No suspicious bony lesions. Overlying soft tissues appear unremarkable. IMPRESSION: No acute cardiopulmonary disease process. Dictated by: Lulú Carrillo MD, PhD on 09/25/2020 at 8:40 Approved by: Lulú Carrillo MD, PhD on 09/25/2020 at 8:41
[2020-09-25] MEDS: SODIUM CHLORIDE 0.9% 1,000 ML 1000 ML IV (03:05)
[2020-09-25] MEDS: ONDANSETRON 4 MG/2 ML INJ IV (03:06)
[2020-09-25] MEDS: ACETAMINOPHEN 325 MG TABLET 975 MG PO (03:06)
[2020-09-25] MEDS: diphenhydrAMINE 50 MG/ML VIAL 25 MG IV (03:06)
[2020-09-25 03:07] LABS: Add Manual Diff / Slide Review NO; Basophils Absolute Auto 100 /uL (0-100); Basophils Percent Auto 0.8 % (0-2); Eosinophils Absolute Auto 600 /uL (0-450); Eosinophils Percent Auto 8.9 % (2-4); Hematocrit 31.9 % (36-46); Hemoglobin 10.5 g/dL (12.0-16.0); Lymphocytes Absolute Auto 2000 /uL (1100-4500); Lymphocytes Percent Auto 30.8 % (25-40); Mean Corpuscular Hemoglobin 28.7 PG (26-34); Mean Corpuscular Volume 86.9 fL (80-100); Monocytes Absolute Auto 700 /uL (0-900); Monocytes Percent Auto 11.6 % (3-14); Neutrophils Absolute Auto 3100 /uL (1500-7000); Neutrophils Percent Auto 47.9 % (50-75); Platelet Count 215 X10^3/uL (150-400); Red Blood Cell Count 3.67 X10^6/uL (4.0-5.2); Red Cell Distribution Width 13.4 % (11.6-14.8); White Blood Cell Count 6.4 X10^3/uL (4.5-11.0)
[2020-09-25 03:12] LABS: Alanine Aminotransferase 42 IU/L (<35); Albumin 4.1 g/dL (3.5-5.0); Albumin Globulin Ratio 1.6 (1.0-2.8); Alkaline Phosphatase 103 U/L (38-126); Aspartate Aminotransferase 39 IU/L (14-36); BUN Creatinine Ratio 23.4 (6-22); Bilirubin Total 0.2 mg/dL (0.2-1.3); Blood Urea Nitrogen 18 mg/dL (7-17); Calcium 8.4 mg/dL (8.4-10.2); Carbon Dioxide 26 mmol/L (22-32); Chloride 91 mmol/L (98-107); Estimated Glomerular Filt Rate > 60.0 mL/min (>60); Globulin 2.6 g/dL (1.7-4.1); Glucose 98 mg/dL (70-100); HEMOLYSIS < 15 (0-50); Lipase 68 U/L (23-300); Magnesium 1.8 mg/dL (1.6-2.3); Potassium 4.5 mmol/L (3.4-5.1); Sodium 124 mmol/L (137-145); Total Protein 6.7 g/dL (6.3-8.2)
[2020-09-25 03:24] LABS: Troponin I < 0.012 ng/mL (0.01-0.034)
[2020-09-25 05:33] LABS: COVID19 - ADMIT (NP swab/PCR) Negative (Negative)
[2020-09-25] MEDS: SODIUM CHLORIDE 0.9% 1,000 ML 100 ML IV (06:52)
--- NOTE | 2020-09-25 07:07 | PM.HP.1 ---
History of Present Illness History of Present Illness Date Patient Seen: 09/25/20 Time Patient Seen: 05:45 Chief complaint: Low BP, not feeling well/shaky Narrative: Ginny Garcia is a very pleasant 54-year-old female with a history of hyperthyroidism and hypertension who developed a rigor like movement in her legs and a fine tremor of her hands. 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 States she has labile blood pressures, took her blood pressure and it read very low at 60/40. She started shaking did not want to get up because of her low blood pressure but felt she heard a dull sound in her head and then felt lightheaded. She does 9 having any chest pressure but starting breathing hard massaging her chest which made it a little bit painful to her. She drinks 1-2 gal of water a day she is in her car most of the day. Her mother 3 months ago and during that period started taking Cymbalta and was recently increased to 60 mg last week. She also got her 2nd COVID shot on Tuesday of last week and had some nausea. For her hyperthyroidism she takes meth in the thighs all and she sometimes wakes up with mild tremors and an elevated heart rate. Chest x-ray was ordered and done in the emergency department however there is no read on it as yet. They gave her a bolus of normal saline and a 1 time dose of Zofran due to her nausea. She is afebrile, blood pressure is 115/65, heart rate 75, respiratory rate of 18, oxygen saturation 98% on room air she weighs 78 kg with a BMI of 31.4. She is mildly anemic with the hemoglobin and hematocrit of 10.5 and 31.9 respectively, she does have a low sodium of 124, low chloride of 91, mildly elevated AST an ALT of 39 and 42 respectively, TSH is 2.71 within normal limits, COVID-19 PCR is negative however she is positive for MRSA colonization nose. Patient History Medical History (Updated 09/25/20 @ 04:41 by Anai Bojorquez MD) Graves disease Migraine Transient amnesia Surgical History (Updated 09/25/20 @ 08:03 by LENA Merino) H/O: hysterectomy History of gastric bypass History of sinus surgery Hx of cholecystectomy Family & Social History Social History: household members spouse,family Prior Living Arrangements House Safety & Behavioral: Feels Safe in Current Yes Environment Been Physically Hurt or No Threatened By a Person Suicidal Ideation Description None Tobacco & Substance use: Smoking Status Never smoker alcohol intake current alcohol intake frequency a few times a week Substance Use Type does not use Meds Home Medications and Allergies Home Medications Medication Instructions Recorded Confirmed Type methimazole [Tapazole] 40 mg PO Q DAY #0 07/04/11 09/25/20 History [VICOPROFEN] 7.5 - 200 mg PO DAILY #0 04/17/16 09/25/20 History oxycodone [OxyContin] 10 mg OR HS #0 04/17/16 09/25/20 History ondansetron 4 mg PO Q8H PRN #30 tab 07/20/19 09/25/20 Rx Cymbalta 30 mg PO BID 09/25/20 09/25/20 History losartan 25 mg PO DAILY 09/25/20 09/25/20 History metoprolol succinate 50 mg PO DAILY 09/25/20 09/25/20 History Allergies Allergy/AdvReac Type Severity Reaction Status Date / Time No Known Allergies Allergy Uncoded 08/17/17 12:12 Review of Systems Review of Systems ROS: Yes All systems reviewed with the patient and are negative except as otherwise documented Exam Vital Signs (past 8 hours): - 09/25/20 02:57 09/25/20 03:00 09/25/20 03:30 Temperature 98.4 F Pulse Rate 84 Respiratory Rate 24 Blood Pressure 131/87 124/84 120/100 H Pulse Oximetry 98 09/25/20 03:34 09/25/20 03:59 09/25/20 04:00 Temperature Pulse Rate 88 81 81 Respiratory Rate Blood Pressure 128/70 Pulse Oximetry 97 96 96 09/25/20 04:30 09/25/20 04:54 09/25/20 04:58 Temperature 98.3 F Pulse Rate 79 82 75 Respiratory Rate 19 Blood Pressure 117/69 120/64 Pulse Oximetry 97 96 98 09/25/20 05:00 Temperature Pulse Rate Respiratory Rate Blood Pressure 115/65 Pulse Oximetry Oxygen Delivery Method Room Air Objective Labs Result Diagrams: 09/25/20 02:50 09/25/20 02:50 Labs: Laboratory Results - last 24 hr 05/20/21 05/20/21 05/20/21 02:50 02:50 02:50 WBC 6.4 RBC 3.67 L Hgb 10.5 L Hct 31.9 L MCV 86.9 MCH 28.7 MCHC 33.0 RDW 13.4 Plt Count 215 Neut % (Auto) 47.9 L Lymph % (Auto) 30.8 [place] % (Auto) 11.6 Eos % (Auto) 8.9 H Baso % (Auto) 0.8 Neut # (Auto) 3100 Lymph # (Auto) 2000 [place] # (Auto) 700 Eos # (Auto) 600 H Baso # (Auto) 100 Sodium 124 L Potassium 4.5 Chloride 91 L Carbon Dioxide 26 BUN 18 H Creatinine 0.77 Estimated GFR > 60.0 BUN/Creatinine Ratio 23.4 H Glucose 98 Lactate 1.0 Calcium 8.4 Magnesium 1.8 Total Bilirubin 0.2 AST 39 H ALT 42 H Alkaline Phosphatase 103 Troponin I < 0.012 Total Protein 6.7 Albumin 4.1 Globulin 2.6 Albumin/Globulin Ratio 1.6 Lipase 68 SARS-CoV-2 (PCR) 09/25/20 04:23 WBC RBC Hgb Hct MCV MCH MCHC RDW Plt Count Neut % (Auto) Lymph % (Auto) [place] % (Auto) Eos % (Auto) Baso % (Auto) Neut # (Auto) Lymph # (Auto) [place] # (Auto) Eos # (Auto) Baso # (Auto) Sodium Potassium Chloride Carbon Dioxide BUN Creatinine Estimated GFR BUN/Creatinine Ratio Glucose Lactate Calcium Magnesium Total Bilirubin AST ALT Alkaline Phosphatase Troponin I Total Protein Albumin Globulin Albumin/Globulin Ratio Lipase SARS-CoV-2 (PCR) Negative Assessment & Plan Assessment & Plan narrative: Ginny Garcia will be observed for correction of a mild hyponatremia. Hyponatremia with a sodium of 124, acute, present on admission -sodiums of 130-135 her normal for her -she is on a fluid restriction of 1200 cc -regular diet -she received fluid bolus in the ED and is receiving normal saline at 100 mL/hour Hyperthyroidism, chronic -TSH is normal today, continue home dose of methimazole 40 mg po daily Essential hypertension, chronic, but currently hypotensive -Normally takes metoprolol and losartan, but hold losartan and add parameter of holding metoprolol if systolic is less than 110. VTE prophylaxis: Wells risk score: 0 Bilateral SCDs Consults: none consult and involvement is appreciated. Patient is observation status as her stay is not likely to exceed 2 midnights. FEN: NS at 100 ml/hour, regular diet w/1200 cc fluid restriction, BMP and magnesium in the am. Dispo: probable discharge to home Code Status: Full code as discussed with patient Scores Wells' Criteria for PE Clinical signs and symptoms of DVT: No PE is #1 Dx or equally likely: No Heart rate > 100: No Immobilization at least 3 days or surg in previous 4 weeks: No History of PE or DVT: No Hemoptysis: No Malignancy w/Treatment within 6 months or palliative: No Wells' PE Score total: 0 Quality VTE Deep Vein Thrombosis/Pulmonary Embolism Present on Admission: No MIPS - Admit I confirm the patient?s Advance Care Plan is present, Code status is documented, Surrogate decision maker is in patient?s record [If Yes, STOP here]: Yes
[2020-09-25 07:10] LABS: TSH w/ Reflex to FT4 2.71 uIU/mL (0.47-4.68)
--- NOTE | 2020-09-25 07:29 | PC.ADMIT ---
[facility] Admission Note: 0530 - Patient arrived from ED via wheelchair, patient alert and oriented x4, able to ambulate in room without assistance, no complaints of chest pain or shortness of breath, no dizziness while ambulating. IV flushed and IV fluids infusing. Skin intact. Vital signs within normal limits, patient placed on tele. briefly at bedside, vidhi frank, and will be designated visitor. Patient complaining of 6/10 headache that she takes oxycodone for at home, hospitalist notified and will place order for pain medication. Fluid restriction ordered and patient aware of restriction. Bed in lowest position, call hoover within reach. 0650 - MRSA came back positive, precautions will be placed. The patient,Ginny Garcia,54 y/o, was given written information regarding hospital policies, unit procedures and contact persons. Patient's smoking status: Never smoker. Vital Signs - 8 hr 09/25/20 02:57 09/25/20 03:00 09/25/20 03:30 Temperature 98.4 F Pulse Rate 84 Respiratory Rate 24 Blood Pressure 131/87 124/84 120/100 H Pulse Oximetry 98 09/25/20 03:34 09/25/20 03:59 09/25/20 04:00 Temperature Pulse Rate 88 81 81 Respiratory Rate Blood Pressure 128/70 Pulse Oximetry 97 96 96 09/25/20 04:30 09/25/20 04:54 09/25/20 04:58 Temperature 98.3 F Pulse Rate 79 82 75 Respiratory Rate 19 Blood Pressure 117/69 120/64 Pulse Oximetry 97 96 98 09/25/20 05:00 09/25/20 06:19 Temperature Pulse Rate 75 Respiratory Rate 18 Blood Pressure 115/65 Pulse Oximetry 98
[2020-09-25] MEDS: OXYCODONE IR 10 MG TABLET PO ×2 (08:45→11:50)
[2020-09-25] MEDS: METOPROLOL ER 50 MG TABLET PO (08:45)
--- NOTE | 2020-09-25 10:46 | CM.IDA ---
Initial DCP Assessment Note Pt is a 54 yo female, resident of [place]. Patient presents w/low BP and not feeling well, diagnosed w/hyponatremia and is expected to DC today, according to Dr Ocasio. PCP: Pura Tse Payer: Alfredo Sandoval Reviewed chart, pt is indp and active at baseline, lives w/spouse Eric. 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 According to Dr Ocasio, patient will likely not require NONPROFIT MANAGER today. Plan: DC home w/spouse. No needs expected from DC planning team although will remain available in case this changes today. OKSANA Sanders
[2020-09-25 13:01] LABS: BUN Creatinine Ratio 16.9 (6-22); Blood Urea Nitrogen 13 mg/dL (7-17); Calcium 8.7 mg/dL (8.4-10.2); Carbon Dioxide 24 mmol/L (22-32); Chloride 99 mmol/L (98-107); Estimated Glomerular Filt Rate > 60.0 mL/min (>60); Glucose 99 mg/dL (70-100); HEMOLYSIS < 15 (0-50); Magnesium 1.9 mg/dL (1.6-2.3); Potassium 4.5 mmol/L (3.4-5.1); Sodium 128 mmol/L (137-145)
--- NOTE | 2020-09-25 13:24 | P.DS_ITS ---
History of Present Illness History of Present Illness Date Patient Seen: 09/25/20 Time Patient Seen: 13:24 Chief complaint: Low BP, not feeling well/shaky Narrative: LENA Rodriguez: Ginny Garcia is a very pleasant 54-year-old female with a history of hyperthyroidism and hypertension who developed a rigor like movement in her legs and a fine tremor of her hands. 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 States she has labile blood pressures, took her blood pressure and it read very low at 60/40. She started shaking did not want to get up because of her low blood pressure but felt she heard a dull sound in her head and then felt lightheaded. She does 9 having any chest pressure but starting breathing hard massaging her chest which made it a little bit painful to her. She drinks 1-2 gal of water a day she is in her car most of the day. Her mother 3 months ago and during that period started taking Cymbalta and was recently increased to 60 mg last week. She also got her 2nd COVID shot on Tuesday of last week and had some nausea. For her hyperthyroidism she takes meth in the thighs all and she sometimes wakes up with mild tremors and an elevated heart rate. Chest x-ray was ordered and done in the emergency department however there is no read on it as yet. They gave her a bolus of normal saline and a 1 time dose of Zofran due to her nausea. She is afebrile, blood pressure is 115/65, heart rate 75, respiratory rate of 18, oxygen saturation 98% on room air she weighs 78 kg with a BMI of 31.4. She is mildly anemic with the hemoglobin and hematocrit of 10.5 and 31.9 respectively, she does have a low sodium of 124, low chloride of 91, mildly elevated AST an ALT of 39 and 42 respectively, TSH is 2.71 within normal limits, COVID-19 PCR is negative however she is positive for MRSA colonization nose. 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 She developed no signs or symptoms of infection during her observation stay, which was predominantly for a mild hyponatremia with a sodium of 124. This was likely hypovolemic in nature as it improved to 128 on repeat testing after fluids. The patient had no further symptoms and her blood pressure was controlled after holding her losartan. She may have been taking losartan in addition to lisinopril as well at home. The patient was subsequently discharged home and instructed to stay well hydrated and follow-up with her primary care provider in the next week or so. For now she should continue to take her blood pressures at home but it is recommended that she hold her home losartan, and potentially l isinopril if she is still taking it at this time. Exam Vital Signs (past 8 hours): - 09/25/20 06:19 09/25/20 08:00 09/25/20 08:45 Temperature 97.4 F L Pulse Rate 75 73 76 Respiratory Rate 18 18 Blood Pressure 111/63 111/63 Pulse Oximetry 98 96 09/25/20 09:06 Temperature Pulse Rate 75 Respiratory Rate Blood Pressure Pulse Oximetry Oxygen Delivery Method Room Air Oxygen Flow Rate 0 Narrative Exam Narrative: GENERAL APPEARANCE: Well developed, well nourished, in no acute distress. SKIN: Inspection of the skin reveals no rashes, ulcerations or petechiae. HEENT: Normocephalic atraumatic, extraocular muscles are intact, oropharynx is clear and mucous membranes are moist, neck is supple without adenopathy NECK: Supple and symmetric. There was no thyroid enlargement, and no tenderness, or masses were felt. CHEST: Normal AP diameter and normal contour without any kyphoscoliosis. LUNGS: Auscultation of the lungs revealed no wheezes, rhonchi, or rales. CARDIOVASCULAR: There was a regular rate and rhythm without any murmurs, gallops, rubs. Peripheral pulses were 2+ and symmetric. ABDOMEN: Soft and nontender with normal bowel sounds. No ascites was noted. MUSCULOSKELETAL: There was no tenderness or effusions noted. Muscle strength and tone were normal. EXTREMITIES: No cyanosis, clubbing or edema. NEUROLOGIC: Alert and oriented x 3. Normal affect. Gait was normal. Strength is +5/5 in the Upper Extremities and Lower Extremities Bilaterally. Sensation to touch was normal. Objective Labs Result Diagrams: 09/25/20 02:50 09/25/20 12:36 Labs: Laboratory Results - last 24 hr 09/25/20 09/25/20 09/25/20 02:50 02:50 02:50 WBC 6.4 RBC 3.67 L Hgb 10.5 L Hct 31.9 L MCV 86.9 MCH 28.7 MCHC 33.0 RDW 13.4 Plt Count 215 Neut % (Auto) 47.9 L Lymph % (Auto) 30.8 [place] % (Auto) 11.6 Eos % (Auto) 8.9 H Baso % (Auto) 0.8 Neut # (Auto) 3100 Lymph # (Auto) 2000 [place] # (Auto) 700 Eos # (Auto) 600 H Baso # (Auto) 100 Sodium 124 L Potassium 4.5 Chloride 91 L Carbon Dioxide 26 BUN 18 H Creatinine 0.77 Estimated GFR > 60.0 BUN/Creatinine Ratio 23.4 H Glucose 98 Lactate 1.0 Calcium 8.4 Magnesium 1.8 Total Bilirubin 0.2 AST 39 H ALT 42 H Alkaline Phosphatase 103 Troponin I < 0.012 Total Protein 6.7 Albumin 4.1 Globulin 2.6 Albumin/Globulin Ratio 1.6 Lipase 68 TSH Nasal Screen MRSA (PCR) SARS-CoV-2 (PCR) 09/25/20 09/25/20 09/25/20 02:50 04:23 05:56 WBC RBC Hgb Hct MCV MCH MCHC RDW Plt Count Neut % (Auto) Lymph % (Auto) [place] % (Auto) Eos % (Auto) Baso % (Auto) Neut # (Auto) Lymph # (Auto) [place] # (Auto) Eos # (Auto) Baso # (Auto) Sodium Potassium Chloride Carbon Dioxide BUN Creatinine Estimated GFR BUN/Creatinine Ratio Glucose Lactate Calcium Magnesium Total Bilirubin AST ALT Alkaline Phosphatase Troponin I Total Protein Albumin Globulin Albumin/Globulin Ratio Lipase TSH 2.71 Nasal Screen MRSA (PCR) Positive for mrsa H SARS-CoV-2 (PCR) Negative 09/25/20 12:36 WBC RBC Hgb Hct MCV MCH MCHC RDW Plt Count Neut % (Auto) Lymph % (Auto) [place] % (Auto) Eos % (Auto) Baso % (Auto) Neut # (Auto) Lymph # (Auto) [place] # (Auto) Eos # (Auto) Baso # (Auto) Sodium 128 L Potassium 4.5 Chloride 99 Carbon Dioxide 24 BUN 13 Creatinine 0.77 Estimated GFR > 60.0 BUN/Creatinine Ratio 16.9 Glucose 99 Lactate Calcium 8.7 Magnesium 1.9 Total Bilirubin AST ALT Alkaline Phosphatase Troponin I Total Protein Albumin Globulin Albumin/Globulin Ratio Lipase TSH Nasal Screen MRSA (PCR) SARS-CoV-2 (PCR) PFSH Medical History (Updated 09/25/20 @ 04:41 by Anai Bojorquez MD) Graves disease Migraine Transient amnesia Surgical History (Updated 09/25/20 @ 08:03 by LENA Merino) H/O: hysterectomy History of gastric bypass History of sinus surgery Hx of cholecystectomy Social History household members: spouse and family Smoking Status: Never smoker alcohol intake: current Discharge Plan Discharge Plan Patient Disposition: Home Provider Discharge Comment: You were admitted to the hospital with a low blood sodium and low blood pressure. Your sodium level improved with IV fluids indicative of dehydration. Please stay well hydrated over the next couple of days and try and follow-up with her primary care provider early next week for recheck of this level. Continue to follow your blood pressure at home, but for now stop taking her losartan and only take a small dose of metoprolol. Please follow-up with her primary care provider for further adjustment of your medications. Discharge orders & Medications Prescriptions: New metoprolol succinate 25 mg tablet extended release 24 hr 25 mg PO DAILY 30 Days Qty: 30 RF: 0 Continued methimazole [Tapazole] 10 MG tablet 40 mg PO Q DAY Qty: 0 RF: 0 oxycodone [OxyContin] 40 MG tablet,oral only,ext.rel.12 hr 10 mg OR HS Qty: 0 RF: 0 [VICOPROFEN] 7.5 mg 7.5 - 200 mg PO DAILY Qty: 0 RF: 0 Cymbalta 30 mg 30 mg PO BID RF: 0 ondansetron 4 mg tablet,disintegrating 4 mg PO Q8H PRN (Reason: nausea and vomiting) Qty: 30 RF: 0 Discontinued metoprolol succinate 50 mg tablet extended release 24 hr 50 mg PO DAILY RF: 0 losartan 100 mg tablet 25 mg PO DAILY RF: 0 Follow up/Referrals: Pura Tse PA-C [Primary Care Provider] - Diet/Activity/Treatments Diet: Diet as Tolerated Diet comment: Stay well hydrated over the next few days Activity: As tolerated Discharge Data Primary Care Provider: Pura Tse Attending Provider: Arpita Li VTE Deep Vein Thrombosis/Pulmonary Embolism Present on Admission: No
--- NOTE | 2020-10-07 17:56 | PC.NURSE ---
Late Entry; NS infusion initiated 09/25 at 06:52, stopped by discharge order at 13:28.
== END 2020-09-25 14:07 | disposition home or self-care (01) ==
LOC: ED 04:41 → AC 04:55 → ICU 05:47
PROVIDERS: Admitting Provider Nurse Practitioner Family; Emergency Provider Emergency Medicine; PCP Physician Assistant Medical; Referring Provider Emergency Medicine; Visit Provider Nurse Practitioner Family
DX: R25.1 Tremor, unspecified (principal); Z20.822 Contact with and (suspected) exposure to COVID-19; E05.00 Thyrotoxicosis with diffuse goiter without thyrotoxic crisis or storm; F32.9 Major depressive disorder, single episode, unspecified; F41.9 Anxiety disorder, unspecified; G43.909 Migraine, unspecified, not intractable, without status migrainosus; I10 Essential (primary) hypertension; E87.1 Hypo-osmolality and hyponatremia
CPT/HCPCS: 36415; 71045; 80048; 80053; 81003; 83605; 83690; 83735; 84443; 84484; 85025; 87040; 87635; 87797; 93005; 93010; 96361; 96374; 96375; 99284; C9803; G0378; J1200; J2405

== ENCOUNTER 2021-03-23 23:19 | Emergency (ER) | payer OTHER, SELFPAY ==
[2020-09-25 04:58] VITALS: BMI 31.4
[2021-03-23 23:26] VITALS: BP 199/94; PULSE 93; RESP 18; TEMP 36.9; O2SAT 98
--- NOTE | 2021-03-23 23:29 | DI.RAD.S_ITS ---
PROCEDURE: XR CHEST 1V INDICATIONS: chest pain TECHNIQUE: One view of the chest was acquired. COMPARISON: [facility], CR, XR CHEST 1V, 09/25/2020, 3:42 FINDINGS: Surgical changes and devices: None. Lungs and pleura: Lungs are clear. No pleural effusions or pneumothorax. Mediastinum: Mediastinal contours appear normal. Heart size is normal. Bones and chest wall: No suspicious bony lesions. Overlying soft tissues appear unremarkable. IMPRESSION: No acute process. Dictated by: Jessi Page M.D. on 03/23/2021 at 23:59 Approved by: Jessi Page M.D. on 03/23/2021 at 23:59
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
[2021-03-23 23:49] LABS: Add Manual Diff / Slide Review NO; Basophils Absolute Auto 0 /uL (0-100); Basophils Percent Auto 0.1 % (0-2); Eosinophils Absolute Auto 0 /uL (0-450); Hemoglobin 12.5 g/dL (12.0-16.0); Lymphocytes Absolute Auto 300 /uL (1100-4500); Lymphocytes Percent Auto 6.9 % (25-40); Mean Corpuscular HGB Conc 33.8 % (30-36); Mean Corpuscular Hemoglobin 29.3 PG (26-34); Mean Corpuscular Volume 86.5 fL (80-100); Monocytes Absolute Auto 100 /uL (0-900); Neutrophils Absolute Auto 4600 /uL (1500-7000); Platelet Count 212 X10^3/uL (150-400); Red Blood Cell Count 4.28 X10^6/uL (4.0-5.2); Red Cell Distribution Width 14.8 % (11.6-14.8)
[2021-03-23 23:59] LABS: Alanine Aminotransferase 77 IU/L (<35); Albumin 4.5 g/dL (3.5-5.0); Albumin Globulin Ratio 1.4 (1.0-2.8); Alkaline Phosphatase 90 U/L (38-126); Aspartate Aminotransferase 69 IU/L (14-36); BUN Creatinine Ratio 18.5 (6-22); Bilirubin Total 0.6 mg/dL (0.2-1.3); Blood Urea Nitrogen 17 mg/dL (7-17); Calcium 9.1 mg/dL (8.4-10.2); Carbon Dioxide 25 mmol/L (22-32); Chloride 95 mmol/L (98-107); Creatine Kinase 103 U/L (30-135); Estimated Glomerular Filt Rate > 60.0 mL/min (>60); Globulin 3.2 g/dL (1.7-4.1); Glucose 160 mg/dL (70-100); HEMOLYSIS < 15 (0-50); Lipase 104 U/L (23-300); Potassium 3.9 mmol/L (3.4-5.1); Sodium 132 mmol/L (137-145); Total Protein 7.7 g/dL (6.3-8.2)
[2021-03-24] VITALS (9 sets, daily range): BP systolic 146–179; BP diastolic 89–101; PULSE 81–88; RESP 10–18; O2SAT 95–96
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
[2021-03-24 00:11] LABS: Troponin I < 0.012 ng/mL (0.01-0.034)
[2021-03-24 00:14] LABS: CKMB % Relative Index 1.1 % (1.5-5.0); Creatine Kinase MB 1.12 ng/mL (<2.37)
[2021-03-24] MEDS: LABETALOL 20 MG/4 ML SYRINGE 10 MG IV (00:36)
--- NOTE | 2021-03-24 01:01 | PC.NURSE ---
Blood pressures waxing and waning. With BP still at 166/100 patient wanted to try another dose of 10mg Labetalol then go home, DR Campos verbal order for additional dose. In checking pressure prior to administration pressure 154/94. Will hold and monitor pt in another 10min to see where blood pressure is at to determine if additional dose necessary.
== END 2021-03-24 01:24 | disposition home or self-care (01) ==
PROVIDERS: Emergency Provider Emergency Medicine; PCP Physician Assistant Medical
DX: I10 Essential (primary) hypertension (principal); R51.9 Headache, unspecified
CPT/HCPCS: 36415; 71045; 80053; 82550; 82553; 83690; 84484; 85025; 93005; 96374; 99284

== ENCOUNTER 2021-09-05 08:01 | Emergency (ER) | payer OTHER, SELFPAY ==
[2020-09-25 04:58] VITALS: BMI 31.4
[2021-09-05 08:26] VITALS: BP 169/96; PULSE 98; RESP 18; TEMP 36.6; O2SAT 99; BMI 29.2
--- NOTE | 2021-09-05 08:49 | ED.GENADULT ---
HPI - General Adult General Chief complaint: Dizziness Stated complaint: Vertigo X 3 days Time Seen by Provider: 09/05/21 08:35 Source: patient Mode of arrival: Ambulatory History of Present Illness HPI narrative: 55-year-old female. Approximately 1 year ago had an episode of vertigo. It did resolve on its own after a couple days. She did take some meclizine at that time which seem to help her symptoms somewhat at that time. She took it again this time without much improvement. Her current symptoms started 3 days ago. She awoke 1 morning and stat up an this symptoms occurred. It is positional. Initially she thought it was just when she turned to the left now it seems to be when she turns to the right as well. She again took some meclizine without much improvement. She denies headache, vision changes, palpitations, chest pain, shortness of breath. She is having some nausea but no vomiting. No urinary symptoms. No change in bowel habits. She is having some sinus congestion but that is not new for her. Related Data Home Medications Medication Instructions Recorded Confirmed methimazole 10 mg tablet (Tapazole) 40 mg PO Q DAY #0 07/04/11 09/25/20 [VICOPROFEN] 7.5 - 200 mg PO DAILY #0 04/17/16 09/25/20 oxycodone 40 mg tablet,crush 10 mg OR HS #0 04/17/16 09/25/20 resistant,extended release 12 hr (OxyContin) Cymbalta 30 mg PO BID 09/25/20 09/25/20 Previous Rx's Medication Instructions Recorded ondansetron 4 mg disintegrating 4 mg PO Q8H PRN #30 tab 07/20/19 tablet diazepam 5 mg tablet (Valium) 5 mg PO TID PRN #7 tab 09/05/21 ondansetron 4 mg disintegrating 4 mg PO TID PRN #10 tab 09/05/21 tablet Allergies Allergy/AdvReac Type Severity Reaction Status Date / Time No Known Allergies Allergy Uncoded 08/17/17 12:12 Review of Systems Constitutional Constitutional: Reports system reviewed and no additional complaints, except as documented Eyes Eyes: Reports system reviewed and no additional complaints, except as documented ENT Ears, Nose, Mouth, and Throat: Reports system reviewed and no additional complaints, except as documented Cardiovascular Cardiovascular: Reports system reviewed and no additional complaints, except as documented Respiratory Respiratory: Reports system reviewed and no additional complaints, except as documented Gastrointestinal Gastrointestinal: Reports system reviewed and no additional complaints, except as documented Genitourinary Genitourinary: Reports system reviewed and no additional complaints, except as documented Integumentary/Breasts Skin/Breast: Reports system reviewed and no additional complaints, except as documented Neurologic Neurologic: Reports system reviewed and no additional complaints, except as documented Hematologic/Lymphatic On Anticoagulants: No Allergic/Immunologic Allergic/Immunologic: Reports system reviewed and no additional complaints, except as documented Patient History Medical History Graves disease Migraine Transient amnesia Surgical History H/O: hysterectomy History of gastric bypass History of sinus surgery Hx of cholecystectomy Social History household members: spouse and family Smoking Status: Never smoker alcohol intake: current Smoking Status: Never smoker alcohol intake frequency: a few times a week Substance Use Type: does not use Exam Initial Vital Signs Initial Vital Signs: Vital Signs Temperature 98 F 09/05/21 08:26 Pulse Rate 98 H 09/05/21 08:26 Respiratory Rate 18 09/05/21 08:26 Blood Pressure 169/96 H 09/05/21 08:26 Pulse Oximetry 99 09/05/21 08:26 Const General: cooperative, comfortable and well developed HENMT Head: normal to inspection and normocephalic Ears: TM's normal bilaterally Mouth: oral mucosae normal Throat: posterior oropharynx normal Eyes General: Yes appearance normal, both eyes and all related structures Resp Effort & Inspection: normal respiratory effort Auscultation: clear to auscultation bilaterally Cardio Rate: regular rate Rhythm: regular rhythm GI Inspection: normal to inspection Skin General: no rashes or lesions noted Neuro General: patient alert, patient awake and moves all extremities Cranial Nerves: CN's II-XI intact bilaterally Cognition: normal cognition Speech: speech normal Extrem General: normal to inspection Psych Appearance: grossly normal Scores GCS [place] coma scale eye opening: Spontaneous [place] coma scale verbal response: Orientated Watson coma scale motor response: Obey commands Watson coma scale total score: 15 Course Orders Ordered: Discontinued Medications Diazepam (Diazepam 5 Mg Tablet) 5 mg PO NOW ONE Stop: 09/05/21 08:51 Ondansetron HCl (Ondansetron 4 Mg Odt) 4 mg SL NOW ONE Stop: 09/05/21 08:51 Vital Signs Vital signs: Vital Signs - 8 hr 09/05/21 08:26 Temperature 98 F Pulse Rate 98 H Respiratory Rate 18 Blood Pressure 169/96 H Pulse Oximetry 99 Medical Decision Making MDM Narrative Medical decision making narrative: Patient can reproduce the symptoms by turning her head to the left to the right. She has normal cranial nerves. The rest of her neurologic exam is nonfocal. I have low suspicion for CVA/TIA. Given her presentation I have a low suspicion that this is BPPV. We did discuss the Meghana-Hallpike maneuver. Will send home with Valludivina because of her symptoms. She was given return precautions. She expressed understanding and agreement. Discharge Plan Departure Patient Disposition: Home Clinical Impression: Vertigo Instructions: DI for Vertigo Activity Restrictions/Additional Instructions: Continue to take all of your medications as directed. I recommend that you look up and attempt to perform the Meghana-Hallpike maneuver. Contact your primary doctor for a follow-up. Return to the emergency department for any new or worsening symptoms. Prescriptions: New ondansetron 4 mg tablet,disintegrating 4 mg PO TID PRN (Reason: nausea and vomiting) Qty: 10 0RF diazepam [Valium] 5 mg tablet 5 mg PO TID PRN (Reason: vertigo) Qty: 7 0RF No Action methimazole [Tapazole] 10 MG tablet 40 mg PO Q DAY Qty: 0 0RF oxycodone [OxyContin] 40 MG tablet,oral only,ext.rel.12 hr 10 mg OR HS Qty: 0 0RF [VICOPROFEN] 7.5 mg 7.5 - 200 mg PO DAILY Qty: 0 0RF Cymbalta 30 mg 30 mg PO BID 0RF ondansetron 4 mg tablet,disintegrating 4 mg PO Q8H PRN (Reason: nausea and vomiting) Qty: 30 0RF Referrals: Pura Tse PA-C [Primary Care Provider] -
[2021-09-05] MEDS: diazePAM 5 MG TABLET PO (09:01)
[2021-09-05] MEDS: ONDANSETRON 4 MG ODT SL (09:01)
[2021-09-05 09:18] VITALS: BP 136/89; PULSE 94; RESP 18; O2SAT 97
== END 2021-09-05 09:21 | disposition home or self-care (01) ==
PROVIDERS: Emergency Provider Emergency Medicine; PCP Physician Assistant Medical
DX: R42 Dizziness and giddiness (principal)
CPT/HCPCS: 99283

== ENCOUNTER 2021-10-26 18:47 | Emergency (ER) | payer OTHER, SELFPAY ==
[2020-09-25 04:58] VITALS: BMI 31.4
--- NOTE | 2021-10-26 19:05 | ED.CHESTPAIN ---
HPI - Chest Pain General Chief Complaint: Toxicology Problem Stated Complaint: CHEST PRESSURE TREMORS SOB Time Seen by Provider: 10/26/21 18:56 History of Present Illness HPI narrative: Patient is a 56-year-old female history of hyperthyroid and alcoholism, and depression presenting today with shaking and chest discomfort and tightness. She says that she has been out of her methimazole for about 2 months. She also admits to drinking heavily at least 2 bottles of wine throughout the day. Her drinking increased a little bit last week. She drink a lot yesterday but has not had anything except for 1 glass of wine to drink today. She overall does not feel good she shaking she has some chest discomfort she slightly short of breath. No abdominal pain nausea vomiting. No fevers chills. She denies any current thoughts of suicide although she has had some thoughts. Her primary care provider has set her up with therapy and counseling in given her numerous resources. Related Data Home Medications Medication Instructions Recorded Confirmed methimazole 10 mg tablet (Tapazole) 40 mg PO Q DAY ##0 07/04/11 09/25/20 [VICOPROFEN] 7.5 - 200 mg PO DAILY ##0 04/17/16 09/25/20 oxycodone 40 mg tablet,crush 10 mg OR HS ##0 04/17/16 09/25/20 resistant,extended release 12 hr (OxyContin) Cymbalta 30 mg PO BID 09/25/20 09/25/20 Previous Rx's Medication Instructions Recorded ondansetron 4 mg disintegrating 4 mg PO Q8H PRN nausea and 07/20/19 tablet vomiting #30 tabs diazepam 5 mg tablet (Valium) 5 mg PO TID PRN vertigo #7 tabs 09/05/21 ondansetron 4 mg disintegrating 4 mg PO TID PRN nausea and 09/05/21 tablet vomiting #10 tabs methimazole 10 mg tablet 20 mg PO DAILY #30 tabs 10/26/21 Allergies Allergy/AdvReac Type Severity Reaction Status Date / Time No Known Allergies Allergy Uncoded 08/17/17 12:12 Review of Systems Review of Systems Narrative: GENERAL: Denies chills, fatigue, malaise, fever, sweats, travel HEENT: Denies sinus pain, ear pain, sore throat, difficulty swallowing, neck pain RESPIRATORY: Denies dyspnea, cough, wheezing, hemoptysis, sputum. CARDIOVASCULAR: See HPI GASTROINTESTINAL: Denies nausea, vomiting, abdominal pain, diarrhea, constipation, melena. : Denies dysuria, frequency, incontinence, hematuria, urinary retention, flank pain. MUSCULOSKELETAL: Denies weakness, joint pain, or bony pain SKIN: No rash, no erythema, no pruritus NEUROLOGIC:+ tremors Denies weakness, dizziness, headache, numbness, change in speech, confusion PSYCHIATRIC: No concerning psychosocial issues. 12 point review of systems is negative except for those stated above and HPI Patient History Medical History Graves disease Migraine Transient amnesia Surgical History H/O: hysterectomy History of gastric bypass History of sinus surgery Hx of cholecystectomy Social History household members: spouse and family Smoking Status: Never smoker alcohol intake: current Smoking Status: Never smoker alcohol intake frequency: a few times a week Substance Use Type: does not use Exam Initial Vital Signs Initial Vital Signs: Vital Signs Pulse Rate 103 H 10/26/21 19:16 Respiratory Rate 20 10/26/21 19:16 Blood Pressure 179/101 H 10/26/21 19:16 Pulse Oximetry 99 10/26/21 19:16 Oxygen Delivery Method 10/26/21 19:16 GENERAL: Alert 56-year-old female slightly anxious and in no acute distress. HEENT: Head atraumatic,EOMI, pupils reactive, face symmetric, moist mucous membranes CARDIOVASCULAR: Regular rate and rhythm without murmurs, rubs or gallops. RESPIRATORY: Breath sounds equal bilaterally, no wheezes rales or rhonchi. ABDOMEN: Soft, nontender. Normoactive bowel sounds all 4 quadrants. No guarding or rebound. EXTREMITIES: Normal range of motion, no clubbing or edema. Neurovascularly intact NEUROLOGICAL: Alert and oriented x4.Normal gait and speech. + resting tremor SKIN: Warm, dry, no laceration, no petechiae, no rashes or lesions. Course Orders Ordered: ED Orders 10/26/21 19:05 Complete Blood Count AUTO DIFF Stat Comprehensive Metabolic Panel Stat ETOH [Ethanol (ETOH)] Stat Lipase Stat NT-proBNP (BNP-Adult 18+) Stat Partial Thromboplastin Time Stat Prothrombin Time INR Stat TSH [Thyroid Stimulating Hormone] Stat Troponin & CK Cardiac Panel Stat 10/26/21 19:06 XR chest 1V Stat 10/26/21 19:11 Consult to ATMOSPHERIC SCIENCES PROFESSOR - Maintenance Department Technician Stat 10/26/21 20:43 Urine Drug Screen, Rapid Stat Discontinued Medications Sodium Chloride (Normal Saline 0.9%) 1,000 mls @ 1,000 mls/hr IV CONT EMMANUEL Last Infusion: 10/26/21 21:14 Dose: 0 mls/hr Documented By: Admin: 10/26/21 19:32 Dose: 1,000 mls/hr Documented By: AT Phenobarbital (Phenobarbital 65 Mg/Ml Vial) 260 mg IV NOW ONE Stop: 10/26/21 19:06 Last Admin: 10/26/21 19:31 Dose: 260 mg Documented By: AT Vital Signs Vital signs: Vital Signs - 8 hr 10/26/21 19:16 10/26/21 19:53 10/26/21 20:00 Pulse Rate 103 H 88 Respiratory Rate 20 21 Blood Pressure 179/101 H 152/87 H Pulse Oximetry 99 96 Oxygen Delivery Method Room Air 10/26/21 20:00 10/26/21 20:30 10/26/21 20:30 Pulse Rate 88 86 Respiratory Rate 25 H 17 Blood Pressure 148/81 H Pulse Oximetry 95 94 Oxygen Delivery Method 10/26/21 21:00 10/26/21 21:00 Pulse Rate 89 Respiratory Rate 20 Blood Pressure 160/79 H Pulse Oximetry 95 Oxygen Delivery Method MDM - Chest Pain Lab Data Result diagrams: 10/26/21 19:05 10/26/21 19:05 Labs: Lab Results 10/26/21 10/26/21 10/26/21 Range/Units 19:05 19:05 19:05 WBC (4.5-11.0) X10^3/uL RBC (4.0-5.2) X10^6/uL Hgb (12.0-16.0) g/dL Hct (36-46) % MCV (80-100) fL MCH (26-34) PG MCHC (30-36) % RDW (11.6-14.8) % Plt Count (150-400) X10^3/uL Neut % (Auto) (50-75) % Lymph % (Auto) (25-40) % Ripley % (Auto) (3-14) % Eos % (Auto) (2-4) % Baso % (Auto) (0-2) % Neut # (Auto) (0184-7526) /uL Lymph # (Auto) (4717-0734) /uL Ripley # (Auto) (0-900) /uL Eos # (Auto) (0-450) /uL Baso # (Auto) (0-100) /uL PT 10.8 (10.1-12.7) SECONDS INR 1.0 (0.9-1.3) APTT 29 (26.4-36.2) SECONDS Sodium (137-145) mmol/L Potassium (3.4-5.1) mmol/L Chloride (98-107) mmol/L Carbon Dioxide (22-32) mmol/L BUN (7-17) mg/dL Creatinine (0.52-1.04) mg/dL Estimated GFR (>60) mL/min BUN/Creatinine Ratio (6-22) Glucose (70-100) mg/dL Calcium (8.4-10.2) mg/dL Total Bilirubin (0.2-1.3) mg/dL AST (14-36) IU/L ALT (<35) IU/L Alkaline Phosphatase (38-126) U/L Total Creatine Kinase (30-135) U/L CK-MB (CK-2) (<2.37) ng/mL CK-MB (CK-2) Rel Index (1.5-5.0) % Troponin I (0.01-0.034) ng/mL NT-Pro-B Natriuret Pep 103 (<125) pg/mL Total Protein (6.3-8.2) g/dL Albumin (3.5-5.0) g/dL Globulin (1.7-4.1) g/dL Albumin/Globulin Ratio (1.0-2.8) Lipase (23-300) U/L TSH 0.279 L (0.47-4.68) uIU/mL U Opiates 300ng/mL cut (Negative) Ur Oxycodone Screen (Negative) Urine Methadone Screen (Negative) Ur Barbiturates Screen (Negative) U Tricyclic Antidepress (Negative) Ur Phencyclidine Scrn (Negative) Ur Amphetamines Screen (Negative) U Methamphetamines Scrn (Negative) Ur MDMA Scrn (Ecstasy) (Negative) U Benzodiazepines Scrn (Negative) Urine Cocaine Screen (Negative) U Marijuana (THC) Screen (Negative) Ethyl Alcohol < 10 ( - 10) mg/dL 10/26/21 10/26/21 10/26/21 Range/Units 19:05 19:05 20:43 WBC 4.2 L (4.5-11.0) X10^3/uL RBC 4.20 (4.0-5.2) X10^6/uL Hgb 11.9 L (12.0-16.0) g/dL Hct 35.9 L (36-46) % MCV 85.5 (80-100) fL MCH 28.3 (26-34) PG MCHC 33.1 (30-36) % RDW 15.0 H (11.6-14.8) % Plt Count 350 (150-400) X10^3/uL Neut % (Auto) 71.7 (50-75) % Lymph % (Auto) 20.0 L (25-40) % Ripley % (Auto) 7.8 (3-14) % Eos % (Auto) 0.1 L (2-4) % Baso % (Auto) 0.4 (0-2) % Neut # (Auto) 3000 (5292-6207) /uL Lymph # (Auto) 800 L (4769-6028) /uL Ripley # (Auto) 300 (0-900) /uL Eos # (Auto) 0 (0-450) /uL Baso # (Auto) 0 (0-100) /uL PT (10.1-12.7) SECONDS INR (0.9-1.3) APTT (26.4-36.2) SECONDS Sodium 128 L (137-145) mmol/L Potassium 4.2 (3.4-5.1) mmol/L Chloride 96 L (98-107) mmol/L Carbon Dioxide 17 L (22-32) mmol/L BUN 9 (7-17) mg/dL Creatinine 0.67 (0.52-1.04) mg/dL Estimated GFR > 60 (>60) mL/min BUN/Creatinine Ratio 13.4 (6-22) Glucose 112 H (70-100) mg/dL Calcium 8.9 (8.4-10.2) mg/dL Total Bilirubin 0.8 (0.2-1.3) mg/dL AST 42 H (14-36) IU/L ALT 25 (<35) IU/L Alkaline Phosphatase 105 (38-126) U/L Total Creatine Kinase 112 (30-135) U/L CK-MB (CK-2) 0.74 (<2.37) ng/mL CK-MB (CK-2) Rel Index 0.7 L (1.5-5.0) % Troponin I < 0.012 (0.01-0.034) ng/mL NT-Pro-B Natriuret Pep (<125) pg/mL Total Protein 8.0 (6.3-8.2) g/dL Albumin 4.9 (3.5-5.0) g/dL Globulin 3.1 (1.7-4.1) g/dL Albumin/Globulin Ratio 1.6 (1.0-2.8) Lipase 196 (23-300) U/L TSH (0.47-4.68) uIU/mL U Opiates 300ng/mL cut Negative (Negative) Ur Oxycodone Screen Negative (Negative) Urine Methadone Screen Negative (Negative) Ur Barbiturates Screen Negative (Negative) U Tricyclic Antidepress Positive H (Negative) Ur Phencyclidine Scrn Negative (Negative) Ur Amphetamines Screen Negative (Negative) U Methamphetamines Scrn Negative (Negative) Ur MDMA Scrn (Ecstasy) Negative (Negative) U Benzodiazepines Scrn Negative (Negative) Urine Cocaine Screen Negative (Negative) U Marijuana (THC) Screen Negative (Negative) Ethyl Alcohol ( - 10) mg/dL Imaging Data Chest x-ray: Radiologist's Impression: [address] [place] [id number] XRay Report Signed Patient: Ginny Garcia MR#: [id number] : 1965 Acct:[id number] Age/Sex: 56 / F Date of Service: 10/26/21 Loc: ED Accession Number: [id number] ?? Procedure: XR chest 1V Ordering Provider: Karen Coates D.O. PROCEDURE:? XR CHEST 1V ? INDICATIONS:? short of breath ? TECHNIQUE:? One view of the chest was acquired.? ? COMPARISON:? [facility], CR, XR CHEST 1V, 03/23/2021, 23:30. ? FINDINGS:? ? Surgical changes and devices:? None.? ? Lungs and pleura:? Lungs are clear.? No pleural effusions or pneumothorax.? ? Mediastinum:? Mediastinal contours appear normal.? Heart size is normal.? ? Bones and chest wall:? No suspicious bony lesions.? Overlying soft tissues appear unremarkable.? ? IMPRESSION:? No acute process. ? ? Dictated by: Jessi Page M.D. on 10/26/2021 at 19:47 ? ? ECG Data Interpretation: Normal sinus rhythm rate 100 p.r. interval 126 QRS 86 QTC 451 significant T-wave inversion noted in lead 3, V3, similar to prior EKG in 07/22/20 MDM Narrative Medical decision making narrative: Patient is tachycardic and has tremors. It may be due from alcohol was drawn and is being out of her thyroid medication. Although she has been out of her thyroid medicine for about 2 months. She states that she drink 2 bottles of wine yesterday she has only had 1 class today. I do suspect that this is probably a combination but more likely related to alcohol. She is not interested in going to detox at this time. His we talked about decreasing her alcohol intake is slowly so that she does not have symptoms and I encouraged her to go to detox. Social work was also in there to of weight. At this time she does not need any kind of his criteria for involuntary hospitalization. She is not actively suicidal at this time. She has a supportive . I am happy to refill her medication Discharge Plan Departure Patient Disposition: Home Clinical Impression: Alcohol abuse with withdrawal Instructions: DI for Alcohol Use Disorder Activity Restrictions/Additional Instructions: *You have been diagnosed with alcohol withdrawal and hyperthyroid *What to do: Please decrease your alcohol intake a very slowly. If he stops suddenly it can lead to and seizures. Decrease alcohol by 1 week at a time try 1 and half bottles of wine for 1 week and 1 bottle of wine for 1 week and half a bottle for 1 week and then stop You may choose to go to detox at any time. It will be your responsibility to call the detox centers to look for a bed *Continue to take medications as directed *Follow up with your primary care provider in 2-3 days or call [phone] *Return to ER if you should have seizure activity, chest pain shortness of breath or any new, worsening or concerning symptoms Prescriptions: New methimazole 10 mg tablet 20 mg PO DAILY Qty: 30 0RF No Action methimazole [Tapazole] 10 MG tablet 40 mg PO Q DAY Qty: 0 oxycodone [OxyContin] 40 MG tablet,oral only,ext.rel.12 hr 10 mg OR HS Qty: 0 [VICOPROFEN] 7.5 mg 7.5 - 200 mg PO DAILY Qty: 0 Cymbalta 30 mg 30 mg PO BID ondansetron 4 mg tablet,disintegrating 4 mg PO Q8H PRN (Reason: nausea and vomiting) Qty: 30 0RF ondansetron 4 mg tablet,disintegrating 4 mg PO TID PRN (Reason: nausea and vomiting) Qty: 10 0RF diazepam [Valium] 5 mg tablet 5 mg PO TID PRN (Reason: vertigo) Qty: 7 0RF Referrals: Pura Tse PA-C [Primary Care Provider] - Visit Report Forms: Patient Portal/API
--- NOTE | 2021-10-26 19:06 | DI.RAD.S_ITS ---
PROCEDURE: XR CHEST 1V INDICATIONS: short of breath TECHNIQUE: One view of the chest was acquired. COMPARISON: [facility], CR, XR CHEST 1V, 03/23/2021, 23:30. FINDINGS: Surgical changes and devices: None. Lungs and pleura: Lungs are clear. No pleural effusions or pneumothorax. Mediastinum: Mediastinal contours appear normal. Heart size is normal. Bones and chest wall: No suspicious bony lesions. Overlying soft tissues appear unremarkable. IMPRESSION: No acute process. Dictated by: Jessi Page M.D. on 10/26/2021 at 19:47 Approved by: Jessi Page M.D. on 10/26/2021 at 19:47
[2021-10-26 19:16] VITALS: BP 179/101; PULSE 103; RESP 20; O2SAT 99; BMI 27.4
[2021-10-26 19:22] LABS: Add Manual Diff / Slide Review NO; Basophils Absolute Auto 0 /uL (0-100); Basophils Percent Auto 0.4 % (0-2); Eosinophils Absolute Auto 0 /uL (0-450); Eosinophils Percent Auto 0.1 % (2-4); Hematocrit 35.9 % (36-46); Hemoglobin 11.9 g/dL (12.0-16.0); Lymphocytes Absolute Auto 800 /uL (1100-4500); Mean Corpuscular HGB Conc 33.1 % (30-36); Mean Corpuscular Hemoglobin 28.3 PG (26-34); Mean Corpuscular Volume 85.5 fL (80-100); Monocytes Absolute Auto 300 /uL (0-900); Monocytes Percent Auto 7.8 % (3-14); Neutrophils Absolute Auto 3000 /uL (1500-7000); Neutrophils Percent Auto 71.7 % (50-75); Platelet Count 350 X10^3/uL (150-400); White Blood Cell Count 4.2 X10^3/uL (4.5-11.0)
[2021-10-26 19:28] LABS: Prothrombin Time 10.8 SECONDS (10.1-12.7)
[2021-10-26 19:30] LABS: PTT Partial Thromboplastin Tim 29 SECONDS (26.4-36.2)
[2021-10-26] MEDS: PHENobarbital 65 MG/ML VIAL 260 MG IV (19:31)
[2021-10-26] MEDS: SODIUM CHLORIDE 0.9% 1,000 ML 1000 ML IV (19:32)
[2021-10-26 19:33] LABS: Alanine Aminotransferase 25 IU/L (<35); Albumin 4.9 g/dL (3.5-5.0); Albumin Globulin Ratio 1.6 (1.0-2.8); Alkaline Phosphatase 105 U/L (38-126); Aspartate Aminotransferase 42 IU/L (14-36); BUN Creatinine Ratio 13.4 (6-22); Bilirubin Total 0.8 mg/dL (0.2-1.3); Blood Urea Nitrogen 9 mg/dL (7-17); Calcium 8.9 mg/dL (8.4-10.2); Carbon Dioxide 17 mmol/L (22-32); Chloride 96 mmol/L (98-107); Creatine Kinase 112 U/L (30-135); Estimated Glomerular Filt Rate > 60 mL/min (>60); Globulin 3.1 g/dL (1.7-4.1); Glucose 112 mg/dL (70-100); Lipase 196 U/L (23-300); Potassium 4.2 mmol/L (3.4-5.1); Sodium 128 mmol/L (137-145)
[2021-10-26 19:34] LABS: Ethanol (ETOH) < 10 mg/dL
[2021-10-26 19:43] LABS: NT-proBNP (BNP-Adult 18+) 103 pg/mL (<125)
[2021-10-26 19:45] LABS: Troponin I < 0.012 ng/mL (0.01-0.034)
[2021-10-26 19:48] LABS: CKMB % Relative Index 0.7 % (1.5-5.0); Creatine Kinase MB 0.74 ng/mL (<2.37)
[2021-10-26 19:49] LABS: HEMOLYSIS 48 (0-50)
[2021-10-26 19:53] VITALS: PULSE 88; RESP 21; O2SAT 96
[2021-10-26 20:00] VITALS: BP 152/87; PULSE 88; RESP 25; O2SAT 95
[2021-10-26 20:17] LABS: Thyroid Stimulating Hormone 0.279 uIU/mL (0.47-4.68)
[2021-10-26 20:30] VITALS: BP 148/81; PULSE 86; RESP 17; O2SAT 94
--- NOTE | 2021-10-26 20:53 | CM.SWNOTE ---
RESORT MANAGER Assessment RESORT MANAGER - Recycling Technician Assessment RESORT MANAGER/Recycling Technician Assessment Time Spent with Patient Start date 10/26/21 Visit Start Time 19:30 End date 10/26/21 Visit End Time 20:05 Total time Care Management spent on 35 minutes patient visit-in minutes Substance Abuse Screening Include Onset, Duration, Intensity Presenting Problem Patient presents to the ED due to concern for increased tremors. Patient endorses concern that tremors is caused by increase in ETOH use. Precipitating Event(s) Patient endorses increase in life stressors over that last few weeks and that her mother a year and a half ago. Patient Strengths patient is seeking help, patient reached out to PCP for appt and to seek out MH providers. Current Behavioral Health Provider(s) No current provider, patient Include Facility, Provider, Ph. # states she last saw a therapist 5+ years ago and would like to see a therapist again. Family Hx of Behavioral Abuse None reported Rehab Facilities? ((Date(s), Location(s) No hx ) History of Withdrawal? Seizures? Patient endorses anxiety, tremors, chest pressure and hot flashes. Longest Period of Sobriety Patient states that prior to a 1 1/2 years ago drinking was not an issue. Psychosocial information & Support Patient is 56 y/o female who Systems resides with in [place]. Patient endorses as support and states that other family members do not know about her current struggles School/Work Not currently working Legal Concerns Legal Matters - Outstanding Issues None reported Mental Status Orientation (Person/Place/Time) A/Ox4 Stated Mood ok Affect (Congruent with Mood?) flat/euthymic, anxious, full range, congruent with mood Thought Content - Specify/Describe None reported Obsessions, Delusions, Hallucinations Thought Processes (Bjujlof-Hrclkaaw-Mahk logical/coherent Qlcabywb-Qlrbovcf-Tasoiczgpx- Nfzbhqrusaubdl-Cjquwqx-Zsizwtbdblsi- Thought Blocking) Speech (Cwggpe-Jzyw-Jbfospi-Rapid-Soft- normal/soft Loud-Pressured) Motor (Iwkjfc-Nrzgsqphq-Cyux-Other) normal, not formally assessed Insight (Yiym-Rmxr-Jtar/Limited) fair/good Judgement (Ascp-Pgcc-Lcjj/Limited) fair Impulse Control (Adequate-Impaired) adequate Memory (Hwnegnumz-Bmtpap-Kmfgsp, intact, not formally assessed Impaired-Intact) Concentration (Intact-Impaired) intact Attention (Intact-Impaired) intact Behavior (Appropriate-Inappropriate) appropriate Additional Comment Patient presents as calm, communicative and cooperative Risk Assessment Suicidal Ideation (Plan) Yes Homicidal Ideation (Plan) No Comment Patient endorses she has been depressed for years and her depression and thoughts of SI have increased recently. Patient endorses thoughts of slitting her wrists the other day. Patient denies intent to act on this plan and states she would not act on it because of her family, kids, and grandkids. Intervention Intervention RESORT MANAGER enters room to meet with patient. Present in room is patient's , patient provides consent for to be present. Patient endorses concern for tremors and states that she has increased her ETOH consumption in the last few weeks and overall in the last year and a half. Patient endorses that at most she drinks two bottles of wine a day throughout the day each day. Patient endorses that her last drink was at 1500 today. Patient's toxicology screen is negative for all substances . Patient denies hx of AA, inpatient and outpatient services. Patient endorses that her father's side of the family has a hx of ETOH use. Patient endorses that today when she realized ETOH use was becoming a problem due to the tremors she called her PCP, scheduled an appt and asked for MH resources. Patient endorses her preference to detox at home and seek out MH provider. RESORT MANAGER provides patient with [facility] outpatient resources and MH providers that accept her insurance. It is the opinion of this RESORT MANAGER that patient is safe to d/c to home upon medical clearance. RESORT MANAGER reviews the above with ED provider Dr. Coates who indicates agreement and understanding. Plan RA Plan Patient to d/c to home when medically clear with . Patient to seek out MH provider and to f/u with PCP at appt in 1-2 weeks. OKSANA P[place]agua
[2021-10-26 21:00] VITALS: BP 160/79; PULSE 89; RESP 20; O2SAT 95
[2021-10-26 21:24] LABS: Ur Creatinine 20 (Normal); Ur Specific Gravity 1.015 (Normal); Urine Tetrahydrocannabinol Negative (Negative); Urine pH 5 (Normal)
[2021-10-26 21:25] LABS: UR Morphine/Opiate cutoff 300 Negative (Negative); Urine Amphetamines Negative (Negative); Urine Barbiturates Negative (Negative); Urine Benzodiazepines Negative (Negative); Urine Cocaine Negative (Negative); Urine MDMA Negative (Negative); Urine Methadone Negative (Negative); Urine Methamphetamines Negative (Negative); Urine Oxycodone Negative (Negative); Urine Phencyclidine Negative (Negative); Urine Tricyclic Antidepressant Positive (Negative)
== END 2021-10-26 21:14 | disposition home or self-care (01) ==
PROVIDERS: Emergency Provider Emergency Medicine; PCP Physician Assistant Medical
DX: F10.139 Alcohol abuse with withdrawal, unspecified (principal); R07.9 Chest pain, unspecified
CPT/HCPCS: 36415; 71045; 80053; 80305; 80320; 82550; 82553; 83690; 83880; 84443; 84484; 85025; 85610; 85730; 93005; 96361; 96374; 99284; J2560